=== PATIENT | female | born 1950 | race Caucasian/White ===

== ENCOUNTER 2017-03-21 15:34 | Inpatient (IN) ==
[2017-03-21] MEDS ORDERED: AZITHROMYCIN INJ 500 MG in SODIUM CHLORIDE 0.9% 250 ML IV STA (15:49)
[2017-03-21] MEDS ORDERED: methylPREDNISolone SOD SUC 125 MG/2 ML VIAL IV STA (15:49)
[2017-03-21] MEDS ORDERED: ALBUTEROL/IPRATROPIUM 3 ML NEB RESP TX STA ×2 (15:49→16:48)
--- NOTE | 2017-03-21 15:52 | EKG Report ---
Stationary ECG Study 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
--- NOTE | 2017-03-21 15:53 | Emergency Department Note ---
Arrival - Arrival Chief Complaint: Shortness of Breath Stated Complaint: Shortness of Breath ED Nursing Triage Note: Patient presents via EMS from home with a complaint of shortness of breath. Onset today. Patient states worse with walking around Mode of Arrival: Stretcher Limitations: No Limitations Source: Patient Time Seen by Provider: 03/21/17 15:49 - History of Present Illness HPI Narrative: This 66-year-old white female presents with insidious onset of dyspnea on exertion and now at rest. The patient denies cough, chills, fever, purulence, chest pain, sinus complaints, nausea, or vomiting. The patient denies any prior cardiac disease or pulmonary disease although she states she has had intermittent wheezing throughout the week and has felt tight in her chest without true pain. Currently she appears in no acute distress and is medically stable. Onset (ago): week(s) (Patient presents 1 week post onset of symptoms) Date of Last Menstrual Period: menopasue Allergies/Adverse Reactions: Allergies Allergy/AdvReac Type Severity Reaction Status Date / Time No Known Allergies Allergy Unverified 03/21/17 15:42 Review of System - Review of System 12 point system: reviewed and no additional remarkable complaints except as stated - Review of System Constitutional: Present: as per HPI Head/Ears/Nose/Throat: Present: see HPI Respiratory: Present: as per HPI Cardiovascular: Present: as per HPI Gastrointestinal: Present: as per HPI Medical,Surgical,& Family Hx - Medical History Cardio: History of: Hypertension Psychological: History of: ADHD - Social History Smoking Status: Former smoker Frequency of Alcohol Use: None Type of Drug Use: None Exam Physical Examination: GENERAL: Morbidly obese female in no acute distress. HEENT: Normocephalic. No trauma. Moist mucous membranes. EOMI. PERRLA. ENT NML NECK: Supple. No adenopathy. CARDIAC: Regular. No murmurs. Heart rate 115 CHEST: Slight anterior expiratory wheeze. No respiratory distress. O2 sat 95% ABDOMEN: Soft. Nontender. Active bowel sounds. EXTREMITIES: No trauma. Normal ROM. No pedal edema. SKIN: No diaphoresis. No rash. NEURO: Alert. Neuro intact. No focal deficits. Vital Signs: Vital Signs Temperature 98.1 F 03/21/17 15:34 Pulse Rate 112 H 03/21/17 16:30 Respiratory Rate 24 03/21/17 16:30 Blood Pressure 117/78 03/21/17 16:30 O2 Sat by Pulse Oximetry 96 03/21/17 16:30 Course - Reevaluation(s) Reevaluation #1: I have advised patient she has a number of problems necessitating admission for further evaluation including congestive failure, possible pneumonia, and positive cardiac enzymes. - Consultations Consultation #1: Discussed with hospitalist service who will admit for further evaluation treatment. Results - Labs CBC & BMP: 03/21/17 16:17 03/21/17 16:17 Labs: I have reviewed the laboratory noted the bump in troponin. - Impressions EKG: Sinus rhythm at 115 with normal DC interval but evidence of left bundle branch block. Diffuse ST changes consistent with block but no acute injury pattern noted. - Diagnostic Findings Procedure: Chest x-ray: image reviewed by me, report reviewed by me (Mild cardiomegaly with incipient CHF) Disposition Clinical Impression: Abnormal cardiac enzymes, Congestive failure, Pneumonia Case discussed with: patient, patient's family Disposition: Still a Patient Condition: Stable Time of Disposition: 17:15
[2017-03-21] MEDS ORDERED: methylPREDNISolone SOD SUC 125 MG/2 ML VIAL ONE (16:09)
--- NOTE | 2017-03-21 16:30 | XRay Report ---
XR chest 2V Date: 03/21/2017 3:49 PM History: Shortness of breath Comparison: None Technique: PA and lateral chest Findings: The heart is minimally enlarged with calcification in the aortic knob. Prominent pulmonary vasculature with diffuse parenchymal findings especially in the lower lung zones. Minimal fluid in the fissures. Degenerative changes are noted. Impression: COPD with mild to moderate CHF/pneumonitis with associated atelectasis. PROCEDURE INTERPRETED AT [facility] DEPARTMENT OF RADIOLOGY Final Report Signed by: Dr. Elizabeth Thomas
[2017-03-21 16:43] LABS: Basophils % 0.3 % (0.0-0.8); Eosinophils # 0.1 10*3/uL (0.0-0.87); Hematocrit 38.1 VOL% (35.7-47.0); Hemoglobin 12.5 GM/DL (12.0-16.0); Immature Granulocytes % 0.3 %; Immature Granulocytes Absolute 0.03 #; Lymphocytes # 1.7 10*3/uL (1.4-4.0); Lymphocytes % 15.2 % (21.3-54.2); Mean Corpuscular HGB Conc 32.8 GM/DL (32-36); Mean Corpuscular Hemoglobin 27 PG (27-34); Mean Corpuscular Volume 83.6 FL (87-102); Mean Platelet Volume 9.2 FL (9.6-12.0); Monocytes # 0.7 10*3/uL (0.11-0.8); Monocytes % 5.9 % (1.7-12.7); Neutrophils # 8.8 10*3/uL (1.4-7.4); Neutrophils % 77.3 % (38.7-73.9); Platelet Count 294 T/CUMM (130-400); Red Blood Count 4.56 MC/CUMM (3.8-5.5); Red Cell Distribution Width 14.3 % (9.3-17.3); White Blood Count 11.3 T/CUMM (4-12)
[2017-03-21] MEDS ORDERED: AZITHROMYCIN 500 MG VIAL IV ONE ×2 (16:43→16:48)
[2017-03-21] MEDS ORDERED: FUROSEMIDE 40 MG/4 ML VIAL IV STA (16:48)
[2017-03-21 16:52] LABS: PT Patient Result 10.4 SECS; Partial Thromboplastin Time 24.7 SECS (0-40)
[2017-03-21 17:03] LABS: Alanine Aminotransferase 23 U/L (13-56); Albumin 3.8 G/DL (3.4-5.0); Alkaline Phosphatase 72 U/L (45-117); Aspartate Amino Transferase 19 U/L (0-37); Blood Urea Nitrogen 22 MG/DL (7-18); Calcium 8.6 MG/DL (8.5-10.1); Glucose 93 MG/DL (74-106); Osmolality,Calculated 283.3 MOS/KG (273-304); Potassium 4.2 MMOL/L (3.5-5.1); Sodium 141 MMOL/L (136-145); Total Protein 7.2 G/DL (6.4-8.3)
[2017-03-21 17:05] LABS: Troponin I Only 0.148 NG/ML (0.00-0.045)
[2017-03-21] MEDS ORDERED: NITROGLYCERIN 2% OINT 1 INCH/GM PACK TOP STA (17:09)
[2017-03-21] MEDS ORDERED: METOPROLOL TARTRATE 25 MG TABLET PO STA (17:09)
[2017-03-21] MEDS ORDERED: ASPIRIN 325 MG TABLET PO STA (17:10)
[2017-03-21] MEDS ORDERED: ASPIRIN 325 MG TABLET ONE (17:21)
[2017-03-21] MEDS ORDERED: METOPROLOL TARTRATE 25 MG TABLET ONE (17:21)
[2017-03-21] MEDS ORDERED: NITROGLYCERIN 2% OINT 1 INCH/GM PACK TOP ONE (17:21)
--- NOTE | 2017-03-21 17:49 | Hospitalist History & Physical ---
Assessment and Plan - Time spent with patient Time spent with patient: Greater than 30 minutes (1) Elevated troponin Status: Acute Assessment and plan: Will consult cardiology and monitor for trends in cardiac enzymes. Current Visit: Yes (2) SOB (shortness of breath) Status: Acute Assessment and plan: Admit and start brocholdilator breathing treatments; diuretics; Current Visit: Yes History of Present Illness Chief complaint: SOB; Elevation in Tropinin History of present illness: Ms. Lord is a very pleasant 66 year old white female presented to [facility] ED for shortness of breath; starting this morning around 08:30 and became much worse by 1:30 p.m. with ambulation with associated feeling of "chest tightening". Denies chest pain, nausea, vomiting, chills or fever. Patient denies any prior cardiac disease or pulmonary diease, but admits to having an intermittent wheezing throughout the week and has felt some tightness in the chest without pain. Patient has a history of hypertension and reflux disease. She denies ever having these symptoms before. Surg Hx: tonsilectomy. Family History: Brother: [place]; 2nd Brother: [place]; ; Mother: alzhiemers; CAD; Father cancer; Smoking history x 50 years; Quit December 2015 No alcohol Drug use: 50 years ago patient admits to using LSD, Crack, "pretty much any street drug that i could find but have not done any drugs in 50 years" PCP: Dr. Darvin Mcguire Home Medications Medication Instructions Recorded Confirmed Type Amlodipine Besylate/Benazepril 1 each PO QAM 03/21/17 03/21/17 History [Amlodipine-Benazepril 10-20 mg] Dextroamphetamine/Amphetamine 30 mg PO QAM 03/21/17 03/21/17 History [Dextroamphetamine/Amphetamine ER] Multivitamin (Centrum) [Centrum 1 tablet PO QAM 03/21/17 03/21/17 History Tab] Omeprazole 40 mg PO QAM 03/21/17 03/21/17 History PARoxetine HCl [Paroxetine HCl] 20 mg PO QAM 03/21/17 03/21/17 History hydroCHLOROthiazide 25 mg PO QAM 03/21/17 03/21/17 History [Hydrochlorothiazide] Allergies Allergy/AdvReac Type Severity Reaction Status Date / Time No Known Allergies Allergy Unverified 03/21/17 15:42 Medical,Surgical,& Family Hx - Medical History Cardio: History of: Hypertension Psychological: History of: ADHD Gastrointestinal: History of: GERD - Surgical History HEENT Surgeries: Surgical HX of: Tonsilectomy & Adenoidectomy - Family History Family History: Reports;: Family Cancer, Family Diabetes, Family Heart Disease, Family Hypertension, Family Stroke - Social History Smoking Status: Former smoker (Quit December 2015) Frequency of Alcohol Use: None Type of Drug Use: None Functional capacity: independent ambulation Review of systems: ROS of systems completed and pertinent positives and negatives in HPI. Exam - Constitutional Vitals: Period Temp Pulse Resp BP Sys/Escobar Pulse Ox Last 24 Hr 98.1 F-98.1 F 111-116 14-33 115-135/71-98 95-100 General appearance: no acute distress, over weight - Eye Eye exam: Present: EOMI Pupils: Present: NIHARIKA - Neck Neck exam: Present: normal inspection - Respiratory Respiratory exam: Present: clear to auscultation bilaterally - GI/Abdominal GI/Abdominal exam: Present: normal bowel sounds, soft. Absent: guarding, tenderness, rebound - Extremities Exam Extremities exam: Present: normal inspection, full ROM - Neurological Exam Neurological exam: Present: alert, oriented X3, abnormal gait - Skin Skin exam: Present: normal color, warm, dry Results - Labs CBC & BMP: 03/21/17 16:17 03/21/17 16:17 Lab Results: I have reviewed the past 24 hour labs - Diagnostic Findings Procedure: X-ray: report reviewed by me (COPD with mild to moderate CHF/ pneumonia with associated atelectasis)
[2017-03-21] MEDS ORDERED: FUROSEMIDE 100 MG/10 ML VIAL ONE (17:58)
[2017-03-21] MEDS ORDERED: ONDANSETRON 4 MG/2 ML VIAL IV PRN (20:11)
[2017-03-21] MEDS ORDERED: ACETAMINOPHEN 325 MG TABLET PO PRN (20:11)
[2017-03-21] MEDS ORDERED: MAGNESIUM SULF RIDER 2 GM in PREMIX 1 EACH IV PRN (20:11)
[2017-03-21] MEDS ORDERED: ZALEPLON 5 MG CAPSULE PO PRN (20:11)
[2017-03-21] MEDS ORDERED: MAGNESIUM SULF RIDER 4 GM in PREMIX 1 EACH IV PRN (20:11)
[2017-03-21] MEDS: ENOXAPARIN 40 MG/0.4 ML SYRINGE SUBCUT SCH (22:03)
[2017-03-21] MEDS: CARVEDILOL 3.125 MG TABLET PO SCH (22:03)
[2017-03-22 06:08] LABS: Basophils % 0.1 % (0.0-0.8); Hematocrit 38.6 VOL% (35.7-47.0); Hemoglobin 12.6 GM/DL (12.0-16.0); Immature Granulocytes % 0.4 %; Immature Granulocytes Absolute 0.04 #; Lymphocytes % 10.6 % (21.3-54.2); Mean Corpuscular HGB Conc 32.6 GM/DL (32-36); Mean Corpuscular Hemoglobin 27 PG (27-34); Mean Corpuscular Volume 82.1 FL (87-102); Mean Platelet Volume 9.5 FL (9.6-12.0); Monocytes # 0.4 10*3/uL (0.11-0.8); Monocytes % 4.2 % (1.7-12.7); Neutrophils # 8.1 10*3/uL (1.4-7.4); Neutrophils % 84.7 % (38.7-73.9); Platelet Count 305 T/CUMM (130-400); Red Cell Distribution Width 14.1 % (9.3-17.3); White Blood Count 9.6 T/CUMM (4-12)
[2017-03-22 06:37] LABS: Calcium 9.4 MG/DL (8.5-10.1); Magnesium 2.2 MG/DL (1.8-2.4); Osmolality,Calculated 280.5 MOS/KG (273-304); Potassium 4.3 MMOL/L (3.5-5.1)
[2017-03-22 06:43] LABS: Troponin I Only 0.329 NG/ML (0.00-0.045)
[2017-03-22 06:48] LABS: Risk Ratio 3.9; Thyroid Stimulating Hormone 0.262 uIU/ml (0.358-3.74); VLDL CHOLESTEROL 22.8 MG/DL
--- NOTE | 2017-03-22 08:17 | EKG Report ---
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
--- NOTE | 2017-03-22 08:57 | Cardiology Consult Note ---
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 Lord is a 66 year old female without a prior cardiac history, risk factors significant for family history of early coronary artery disease, tobacco use. Her sister is present who is a nurse. She supplements the history. The patient apparently has had an 8 month subacute decline in her exercise tolerance with worsening dyspnea on exertion. She does notice some dependent lower extremity edema. She does not usually experience chest pain, palpitations. The day of admission, her dyspnea had progressed such that she was unable to walk to her kitchen because she became profoundly dyspneic, and had a sensation that an elephant was sitting on her chest. It did not radiate. She contacted her sister who brought an ambulance, and her sister palpated her heart rate to be extremely tachycardic, at least greater than 150 bpm. The patient had no awareness of these palpitation tachycardia, does not usually experience the symptoms. In the hospital symptoms have improved but she continues to have dyspnea even walking to the bathroom. She has no recent coughs colds, fevers or chills. No history of melena, bright red blood per rectum. She has no impending surgeries. She denies IV contrast allergy. She quit smoking in December of this year. Impression and plan: 1. Shortness of breath-clinically this is suspected to be heart failure, and a possible component of angina. We will workup both of these etiologies. She does have a history of smoking and possible pneumonitis as well, so these could also be contributing. 2. Congestive heart failure-clinically this is suspected with an elevated BNP and possible edema on her chest x-ray. We will check a chest x-ray and treat her medically with diuresis and afterload reduction. 3. Elevated cardiac biomarkers-once her heart failure is treated we will need to proceed with cardiac catheterization for definitive diagnosis to rule out ischemia. 4. Left bundle branch block-chronicity unknown. 5. Hyperlipidemia-we will add statin therapy. CC: Rajendra Ibrahim Jr., MD - Home Medications and Allergies Home Medications: Home Medications Medication Instructions Recorded Confirmed Type Amlodipine Besylate/Benazepril 1 each PO QAM 03/21/17 03/21/17 History [Amlodipine-Benazepril 10-20 mg] Dextroamphetamine/Amphetamine 30 mg PO QAM 03/21/17 03/21/17 History [Dextroamphetamine/Amphetamine ER] Multivitamin (Centrum) [Centrum 1 tablet PO QAM 03/21/17 03/21/17 History Tab] Omeprazole 40 mg PO QAM 03/21/17 03/21/17 History PARoxetine HCl [Paroxetine HCl] 20 mg PO QAM 03/21/17 03/21/17 History hydroCHLOROthiazide 25 mg PO QAM 03/21/17 03/21/17 History [Hydrochlorothiazide] Allergies/Adverse Reactions: Allergies Allergy/AdvReac Type Severity Reaction Status Date / Time No Known Allergies Allergy Unverified 03/21/17 15:42 12 point system: reviewed and no additional remarkable complaints except as stated Medical,Surgical,& Family Hx - Medical History Cardio: History of: Hypertension Psychological: History of: ADHD Gastrointestinal: History of: GERD - Surgical History HEENT Surgeries: Surgical HX of: Tonsilectomy & Adenoidectomy - Family History Family History: Reports;: Family Cancer (sister-cervical cancer, father- esophageal cancer), Family Diabetes (brother), Family Heart Disease (brother-MD) , Family Hypertension, Family Stroke (sister) - Social History Smoking Status: Former smoker Frequency of Alcohol Use: None Type of Drug Use: None Marital Status: Lives With:: Alone Functional capacity: independent ambulation Physical Examination Vital Signs Temp Pulse Resp BP Pulse Ox 98.1 F 116 H 28 H 117/78 95 03/21/17 15:34 03/21/17 15:34 03/21/17 15:34 03/21/17 15:34 03/21/17 15:34 Exam: General appearance: normal weight, no acute distress - Head Head exam: Present: normal inspection, normocephalic, atraumatic. Absent: hematoma, laceration - Eye Eye exam: Present: EOMI. Absent: conjunctival injection, nystagmus, periorbital swelling, scleral icterus, laceration to eyelids Pupils: Present: PERRL. Absent: constricted, dilated, fixed, irregular, unequal - ENT ENT exam: Present: normal exam, normal external ear exam - Neck Neck exam: Present: normal inspection. Absent: lymphadenopathy, meningismus, tenderness, thyromegaly - Respiratory Respiratory exam: Present: clear to auscultation bilaterally. Absent: accessory muscle use, chest wall tenderness - Cardiovascular Cardiovascular exam: Present: regular rate and rhythm. Absent: carotid bruit, gallop, JVD, rubs - GI/Abdominal GI/Abdominal exam: Present: normal bowel sounds, soft. Absent: distended, firm , guarding, hernia, mass, tenderness, rebound. - Extremities Exam Extremities exam: Present: normal inspection, normal capillary refill. Absent: calf tenderness, edema - Back Exam Back exam: Present: normal inspection. Absent: muscle spasm, vertebral tenderness - Neurological Exam Neurological exam: Present: alert, oriented X3, grossly intact without resting or intention tremor - Psychiatric Psychiatric exam: Present: normal affect, normal mood - Skin Skin exam: Present: normal color, warm, dry, intact. Absent: cyanosis, diaphoretic, rash, urticaria Result/EKG - Labs CBC & BMP: 03/22/17 04:11 03/22/17 04:11 Lab Results: I have reviewed the past 24 hour labs Labs: Laboratory Results - last 24 hr 03/21/17 03/21/17 03/21/17 16:17 16:17 16:17 WBC 11.3 RBC 4.56 Hgb 12.5 Hct 38.1 MCV 83.6 L MCH 27 MCHC 32.8 RDW 14.3 Plt Count 294 MPV 9.2 L Neut % (Auto) 77.3 H Lymph % (Auto) 15.2 L [place] % (Auto) 5.9 Eos % (Auto) 1.0 Baso % (Auto) 0.3 Neut # (Auto) 8.8 H Lymph # (Auto) 1.7 [place] # (Auto) 0.7 Eos # (Auto) 0.1 Baso # (Auto) 0.0 Immature Gran % 0.3 Nucleated RBC % 0.0 Immature Gran # 0.03 Nucleated RBCs # 0.00 INR 1.0 PT Patient/Control Mix 10.4 Circ Anticoag PTT 24.7 Sodium 141 Potassium 4.2 Chloride 106 Carbon Dioxide 28 Anion Gap 11.2 BUN 22 H Creatinine 0.90 GFR Calculation 93 BUN/Creatinine Ratio 24.00 H Glucose 93 Hemoglobin A1c Calculated Osmolality 283.3 Lactic Acid Calcium 8.6 Magnesium Total Bilirubin 0.50 AST 19 ALT 23 Alkaline Phosphatase 72 Total Creatine Kinase 92 CK-MB (CK-2) 2.7 Troponin I 0.148 H B-Natriuretic Peptide Total Protein 7.2 Albumin 3.8 Globulin 3.4 Albumin/Globulin Ratio 1.1 Triglycerides Cholesterol LDL Cholesterol VLDL Cholesterol HDL Cholesterol Heart Disease Risk Ratio Free T4 TSH 3rd Generation 03/21/17 03/21/17 03/22/17 16:17 16:17 04:11 WBC 9.6 RBC 4.70 Hgb 12.6 Hct 38.6 MCV 82.1 L MCH 27 MCHC 32.6 RDW 14.1 Plt Count 305 MPV 9.5 L Neut % (Auto) 84.7 H Lymph % (Auto) 10.6 L [place] % (Auto) 4.2 Eos % (Auto) 0.0 Baso % (Auto) 0.1 Neut # (Auto) 8.1 H Lymph # (Auto) 1.0 L [place] # (Auto) 0.4 Eos # (Auto) 0.0 Baso # (Auto) 0.0 Immature Gran % 0.4 Nucleated RBC % 0.0 Immature Gran # 0.04 Nucleated RBCs # 0.00 INR PT Patient/Control Mix Circ Anticoag PTT Sodium Potassium Chloride Carbon Dioxide Anion Gap BUN Creatinine GFR Calculation BUN/Creatinine Ratio Glucose Hemoglobin A1c Calculated Osmolality Lactic Acid 1.5 Calcium Magnesium Total Bilirubin AST ALT Alkaline Phosphatase Total Creatine Kinase CK-MB (CK-2) Troponin I B-Natriuretic Peptide 832 H Total Protein Albumin Globulin Albumin/Globulin Ratio Triglycerides Cholesterol LDL Cholesterol VLDL Cholesterol HDL Cholesterol Heart Disease Risk Ratio Free T4 TSH 3rd Generation 03/22/17 03/22/17 03/22/17 04:11 04:11 04:11 WBC RBC Hgb Hct MCV MCH MCHC RDW Plt Count MPV Neut % (Auto) Lymph % (Auto) [place] % (Auto) Eos % (Auto) Baso % (Auto) Neut # (Auto) Lymph # (Auto) [place] # (Auto) Eos # (Auto) Baso # (Auto) Immature Gran % Nucleated RBC % Immature Gran # Nucleated RBCs # INR PT Patient/Control Mix Circ Anticoag PTT Sodium 139 Potassium 4.3 Chloride 101 Carbon Dioxide 30 Anion Gap 12.3 BUN 22 H Creatinine 0.90 GFR Calculation 93 BUN/Creatinine Ratio 24.00 H Glucose 112 H Hemoglobin A1c Calculated Osmolality 280.5 Lactic Acid Calcium 9.4 Magnesium 2.2 Total Bilirubin AST ALT Alkaline Phosphatase Total Creatine Kinase 160 D CK-MB (CK-2) Troponin I 0.329 H D B-Natriuretic Peptide Total Protein Albumin Globulin Albumin/Globulin Ratio Triglycerides 114 Cholesterol 242 H LDL Cholesterol 164.0 VLDL Cholesterol 22.8 HDL Cholesterol 62 H Heart Disease Risk Ratio 3.90 Free T4 1.30 TSH 3rd Generation 0.262 L 03/22/17 04:11 WBC RBC Hgb Hct MCV MCH MCHC RDW Plt Count MPV Neut % (Auto) Lymph % (Auto) [place] % (Auto) Eos % (Auto) Baso % (Auto) Neut # (Auto) Lymph # (Auto) [place] # (Auto) Eos # (Auto) Baso # (Auto) Immature Gran % Nucleated RBC % Immature Gran # Nucleated RBCs # INR PT Patient/Control Mix Circ Anticoag PTT Sodium Potassium Chloride Carbon Dioxide Anion Gap BUN Creatinine GFR Calculation BUN/Creatinine Ratio Glucose Hemoglobin A1c 6.0 Calculated Osmolality Lactic Acid Calcium Magnesium Total Bilirubin AST ALT Alkaline Phosphatase Total Creatine Kinase CK-MB (CK-2) Troponin I B-Natriuretic Peptide Total Protein Albumin Globulin Albumin/Globulin Ratio Triglycerides Cholesterol LDL Cholesterol VLDL Cholesterol HDL Cholesterol Heart Disease Risk Ratio Free T4 TSH 3rd Generation - Diagnostic Findings Procedure: Chest x-ray: report reviewed by me - EKG EKG results: interpreted by me, sinus rhythm (LBBB)
[2017-03-22] MEDS ORDERED: AMPHETAMINE PO SCH (09:00)
[2017-03-22] MEDS ORDERED: [UNRECOGNIZED DRUG - OTHER] PO SCH (09:00)
[2017-03-22] MEDS ORDERED: DEXTROAMPHETAMINE PO SCH (09:00)
[2017-03-22] MEDS: LISINOPRIL 2.5 MG TABLET PO SCH (09:53)
[2017-03-22] MEDS: MULTIVITAMIN (CENTRUM) TABLET PO SCH (09:54)
[2017-03-22] MEDS: PARoxetine 20 MG TABLET PO SCH (09:54)
[2017-03-22] MEDS: CARVEDILOL 3.125 MG TABLET PO SCH ×2 (09:54→20:54)
[2017-03-22] MEDS: PANTOPRAZOLE 40 MG TABLET PO SCH (09:54)
[2017-03-22] MEDS: FUROSEMIDE 40 MG/4 ML VIAL IV SCH ×2 (09:55→17:00)
--- NOTE | 2017-03-22 14:06 | ECHO Report ---
Tash Lord Exam Date: 03/22/2017 10:52 Referring Physician: Technologist: Sheila Finley RDCS Age: 66 Ht (in): 70 Wt (lb): 270 Gender: F Exam Location: [facility] Echo Indications: Heart failure, unspecified, Shortness of breath, Hyperlipidemia, unspecified, Elevated troponin, Left bundle-branch block, unspecified, Essential (primary) hypertension BP: 123 / 65 HR: 91 Rhythm: Sinus Technical Quality: Fair IMPRESSIONS EF 30-35 %,moderate global hypokinesis. Grade I/IV diastolic dysfunction (abnormal relaxation filling pattern), normal to mildly elevated filling pressures. Normal right ventricular size and systolic function. The right atrium is mildly enlarged. The left atrium is mildly enlarged. Morphologically normal mitral valve. Trace mitral valve regurgitation. Aortic valve sclerosis. No aortic valve regurgitation. Moderate tricuspid valve regurgitation. PAP45 mmHg. Pulmonic valve not well visualized. No pericardial effusion. Normal aorta. MEASUREMENTS (Male / Female) Normal Values 2D ECHO LV Diastolic Diameter PLAX 6.7 cm 4.2 - 5.9 / 3.9 - 5.3 cm LV Systolic Diameter PLAX 5.5 cm LV Fractional Shortening PLAX 17.5 % IVS Diastolic Thickness 1.2 cm 0.6 - 1.0 / 0.6 - 0.9 cm LVPW Diastolic Thickness 1.2 cm 0.6 - 1.0 / 0.6 - 0.9 cm RV Internal Dim ED PLAX 3.8 cm Aortic Root Diameter 3.7 cm LA Systolic Diameter LX 5.5 cm 3.0 - 4.0 / 2.7 - 3.8 cm DOPPLER TR Peak Velocity 274.0 cm/s TR Peak Gradient 30.0 mmHg FINDINGS Left Ventricle EF 30-35 %,moderate global hypokinesis. Grade I/IV diastolic dysfunction (abnormal relaxation filling pattern), normal to mildly elevated filling pressures. Right Ventricle Normal right ventricular size and systolic function. Right Atrium The right atrium is mildly enlarged. Left Atrium The left atrium is mildly enlarged. Mitral Valve Morphologically normal mitral valve. Trace mitral valve regurgitation. Aortic Valve Aortic valve sclerosis. No aortic valve regurgitation. Tricuspid Valve Morphologically normal tricuspid valve. Moderate tricuspid valve regurgitation. PAP45 mmHg. Pulmonic Valve Pulmonic valve not well visualized. Pericardium No pericardial effusion. Aorta Normal aorta. Dariel Ca (Electronically Signed) Final Date: 22 March 2017 14:05
--- NOTE | 2017-03-22 14:31 | Hospitalist Progress Note ---
Assessment and Plan (1) Elevated troponin Status: Acute Assessment and plan: Has been evaluated by cardiology. Continue serial cardiac enzymes. Plan for cardiac cath. Current Visit: Yes (2) SOB (shortness of breath) Status: Acute Assessment and plan: This has improved. Current Visit: Yes (3) Congestive heart failure Status: Acute Current Visit: Yes Qualifiers: Congestive heart failure type: unspecified congestive heart failure type (4) LBBB (left bundle branch block) Status: Acute Assessment and plan: Appreciate input from Dr. Peralta. Current Visit: Yes Hospitalist: Subjective Interval history: The patient is resting comfortably. She states her chest discomfort has improved and her breathing is improved. No further chest pain. Serial cardiac enzymes are noted. She has been evaluated by cardiology and is planned for a cardiac cath on Friday. She gives no history of diabetes and states she has never had symptoms like this before. Exam - Constitutional Vitals: Period Temp Pulse Resp BP Sys/Escobar Pulse Ox Last 24 Hr 96.4 F-98.1 F 78-119 14-33 115-136/62-98 94-100 General appearance: over weight - Head Head exam: Present: normal inspection - Respiratory Respiratory exam: Present: clear to auscultation bilaterally - Cardiovascular Cardiovascular exam: Present: regular rate and rhythm - GI/Abdominal GI/Abdominal exam: Present: normal bowel sounds - Extremities Exam Extremities exam: Present: full ROM - Back Exam Back exam: Present: normal inspection - Neurological Exam Neurological exam: Present: alert, oriented X3, CN II-XII intact - Psychiatric Psychiatric exam: Present: normal affect, normal mood Results - Labs CBC & BMP: 03/22/17 04:11 03/22/17 04:11
[2017-03-22] MEDS: ENOXAPARIN 40 MG/0.4 ML SYRINGE SUBCUT SCH (20:53)
[2017-03-22] MEDS: ATORVASTATIN 20 MG TABLET PO SCH (20:54)
[2017-03-23 03:57] LABS: Basophils % 0.3 % (0.0-0.8); Eosinophils # 0.2 10*3/uL (0.0-0.87); Eosinophils % 1.9 % (0.00-10.9); Hematocrit 35.8 VOL% (35.7-47.0); Hemoglobin 11.9 GM/DL (12.0-16.0); Immature Granulocytes % 0.2 %; Immature Granulocytes Absolute 0.02 #; Lymphocytes # 3.4 10*3/uL (1.4-4.0); Lymphocytes % 38.1 % (21.3-54.2); Mean Corpuscular HGB Conc 33.2 GM/DL (32-36); Mean Corpuscular Hemoglobin 28 PG (27-34); Mean Corpuscular Volume 83.1 FL (87-102); Mean Platelet Volume 8.7 FL (9.6-12.0); Monocytes # 0.6 10*3/uL (0.11-0.8); Neutrophils # 4.7 10*3/uL (1.4-7.4); Neutrophils % 52.5 % (38.7-73.9); Platelet Count 232 T/CUMM (130-400); Red Blood Count 4.31 MC/CUMM (3.8-5.5); Red Cell Distribution Width 14.4 % (9.3-17.3); White Blood Count 8.9 T/CUMM (4-12)
[2017-03-23 04:33] LABS: Calcium 8.9 MG/DL (8.5-10.1); Magnesium 2.3 MG/DL (1.8-2.4); Osmolality,Calculated 283.4 MOS/KG (273-304); Potassium 3.5 MMOL/L (3.5-5.1)
[2017-03-23] MEDS ORDERED: SODIUM CHLORIDE 0.9% 1,000 ML IV SCH (09:30)
--- NOTE | 2017-03-23 09:32 | Hospitalist Progress Note ---
Assessment and Plan (1) Congestive heart failure Status: Acute Assessment and plan: Cardiac enzymes were essentially positive noted at 0.148 at admission and 0.328. Cardiology has been consulted and is following. BNP is down to 361 today; continue diuresis per cardiology . Current Visit: Yes Qualifiers: Congestive heart failure type: unspecified congestive heart failure type (2) Elevated troponin Status: Acute Current Visit: Yes (3) Hyperlipidemia Status: Acute Current Visit: Yes Hospitalist: Subjective Interval history: Patient seen and examined; chart reviewed. No significant overnight events. Noted improvement in BMP BNP noted at 361 today. Cardiology is following. Exam - Constitutional Vitals: Period Temp Pulse Resp BP Sys/Escobar Pulse Ox Last 24 Hr 97 F-97.9 F 66-95 16-20 102-161/63-88 92-96 General appearance: normal weight, no acute distress - Head Head exam: Present: normal inspection, normocephalic, atraumatic - Eye Eye exam: Present: EOMI. Absent: conjunctival injection Pupils: Present: NIHARIKA, normal accommodation - ENT ENT exam: Present: normal exam, normal external ear exam, normal oropharynx - Neck Neck exam: Present: normal inspection. Absent: lymphadenopathy, meningismus, tenderness, thyromegaly - Respiratory Respiratory exam: Present: clear to auscultation bilaterally. Absent: rales, rhonchi, stridor, wheezes - Cardiovascular Cardiovascular exam: Present: regular rate and rhythm. Absent: carotid bruit, diastolic murmur, gallop, JVD, rubs, systolic murmur - GI/Abdominal GI/Abdominal exam: Present: normal bowel sounds - Extremities Exam Extremities exam: Present: normal inspection, normal capillary refill, full ROM , edema (+2 edema noted bilateral) - Back Exam Back exam: Present: normal inspection - Neurological Exam Neurological exam: Present: alert, oriented X3, CN II-XII intact - Psychiatric Psychiatric exam: Present: normal affect, normal mood - Skin Skin exam: Present: normal color, warm, dry Results - Labs CBC & BMP: 03/23/17 03:44 03/23/17 03:44 Lab Results: I have reviewed the past 24 hour labs
--- NOTE | 2017-03-23 09:34 | CT Report ---
History: Left-sided weakness Date: 03/23/2017 Study: CT head without contrast Comparison exam: No previous head CT available for comparison Transaxial CT sections were obtained through the head without IV contrast. The patient was originally admitted on March 21, 2017. This CT exam was performed using one or more the following dose reduction techniques: Automated exposure control, adjustment of the MA and/or KV according to patient size, or use of iterative reconstruction technique. The ventricles are midline in position without evidence of hydrocephalus. There is no mass or area of parenchymal hemorrhage. There is a small area of decreased density measuring 7 mm in the left external capsule region which could represent subacute or older small area of lacunar infarction. There is no gross CT evidence of acute cortical stroke. There is no extra-axial hematoma. There is no acute abnormality of the calvarium. There is mild distal carotid artery calcification bilaterally. Impression: 7 mm area of lacunar ischemia in the left external capsule region which could be subacute or older. No parenchymal hemorrhage. No acute process otherwise PROCEDURE INTERPRETED AT [facility] DEPARTMENT OF RADIOLOGY Final Report Signed by: Dr. Marycarmen Brown
--- NOTE | 2017-03-23 09:36 | Event Note ---
Stroke: This patient who earlier this morning was doing fine was visiting with staff however on nursing rounds for medications patient was found to be dysarthric. She has a CT scan that is pending at this time. Electrolytes were noted to be normal morning labs this morning. Her blood pressure is noted be 126/80 at this time. Currently she is awake and alert recognizes me and voices Dr. Ibrahim by name. However she is dysarthric. Able to move upper and lower extremities without difficulty. Left-sided facial droop appreciated. CVA. Dysarthria. Left-sided facial droop. We will transfer to CCU. Echocardiogram. Serial cardiac enzymes. Chest x-ray. TSH, T4. UA. Carotid Dopplers. Continue with KENYA lockhart. GI prophylaxis.
[2017-03-23 10:04] LABS: Basophils % 0.3 % (0.0-0.8); Eosinophils # 0.2 10*3/uL (0.0-0.87); Eosinophils % 2.5 % (0.00-10.9); Hematocrit 39.4 VOL% (35.7-47.0); Immature Granulocytes % 0.2 %; Immature Granulocytes Absolute 0.02 #; Lymphocytes # 2.9 10*3/uL (1.4-4.0); Mean Corpuscular Hemoglobin 27 PG (27-34); Mean Corpuscular Volume 83.1 FL (87-102); Mean Platelet Volume 8.9 FL (9.6-12.0); Monocytes # 0.6 10*3/uL (0.11-0.8); Monocytes % 6.8 % (1.7-12.7); Neutrophils # 5.1 10*3/uL (1.4-7.4); Neutrophils % 57.2 % (38.7-73.9); Platelet Count 264 T/CUMM (130-400); Red Blood Count 4.74 MC/CUMM (3.8-5.5); Red Cell Distribution Width 14.3 % (9.3-17.3); White Blood Count 8.9 T/CUMM (4-12)
[2017-03-23 10:15] LABS: PT Patient Result 10.7 SECS; Partial Thromboplastin Time 24.3 SECS (0-40)
[2017-03-23] MEDS ORDERED: HEPARIN DRIP 25,000 UNITS/500 ML PREMIX IV SCH (10:15)
--- NOTE | 2017-03-23 10:22 | XRay Report ---
History: Shortness of breath. Weakness Date: 03/23/2017 Study: Chest x-ray AP portable Comparison exam: March 21, 2017 There is stable cardiomegaly. The mediastinal contour is unchanged. The pulmonary vasculature is not engorged. There is no new or worsening infiltrate. There is improved aeration in the right lower lung on the current exam. There is some minor subsegmental atelectasis or scarring in the left mid lung laterally. There is no increasing pleural effusion. Osseous structures are similar. Impression: Improved aeration in the right lung base. No interval worsening PROCEDURE INTERPRETED AT [facility] DEPARTMENT OF RADIOLOGY Final Report Signed by: Dr. Marycarmen Brown
--- NOTE | 2017-03-23 10:27 | Event Note ---
Follow-up with this patient after she is moved to the unit she is awake and alert she is able to move all of her extremities dysarthria is improving. Hemodynamically stable with blood pressure 140/80. She has pending labs at this time. Repeat CT scan of the head this afternoon at 3. Given that she has had some improvement in her symptoms will continue to do neuro checks and monitored follow-up CT scan. Lipid panel. Serial troponins. Follow chest x-ray. CBC BMP in a.m. MRI in a.m. Repeat CT scan this afternoon. Neurochecks. Holding heparin since she has not started her symptoms have started to improve. Patient is currently on Lovenox.
[2017-03-23 10:31] LABS: Calcium 9.3 MG/DL (8.5-10.1); Magnesium 2.4 MG/DL (1.8-2.4); Osmolality,Calculated 286.3 MOS/KG (273-304); Potassium 3.5 MMOL/L (3.5-5.1)
[2017-03-23 10:36] LABS: Troponin I Only 0.244 NG/ML (0.00-0.045)
[2017-03-23] MEDS: LISINOPRIL 2.5 MG TABLET PO SCH (10:40)
[2017-03-23] MEDS: PARoxetine 20 MG TABLET PO SCH (10:41)
[2017-03-23] MEDS: PANTOPRAZOLE 40 MG TABLET PO SCH (10:41)
[2017-03-23] MEDS: MULTIVITAMIN (CENTRUM) TABLET PO SCH (10:42)
[2017-03-23] MEDS: CARVEDILOL 3.125 MG TABLET PO SCH ×2 (10:43→21:12)
[2017-03-23] MEDS: FUROSEMIDE 40 MG/4 ML VIAL IV SCH ×2 (10:44→18:22)
[2017-03-23 10:46] LABS: Albumin 3.8 G/DL (3.4-5.0); Bilirubin,Total 0.5 MG/DL (0.2-1.0); Calcium 8.9 MG/DL (8.5-10.1); Osmolality,Calculated 286.3 MOS/KG (273-304); Potassium 3.5 MMOL/L (3.5-5.1); Total Protein 7.4 G/DL (6.4-8.3)
[2017-03-23 10:52] LABS: Free T4 (Free Thyroxine) 1.28 NG/DL (0.76-1.46); Risk Ratio 4.75; Thyroid Stimulating Hormone 1.42 uIU/ml (0.358-3.74); VLDL CHOLESTEROL 38.6 MG/DL
--- NOTE | 2017-03-23 11:58 | Ultrasound Report ---
History: Left-sided weakness Date: 03/23/2017 Study: Carotid duplex ultrasound Comparison exam: No previous similar Color Doppler, wave form analysis, and grayscale analysis of the cervical carotid arteries was performed. There is mild partially calcified eccentric plaque in either carotid bulb. Waveform analysis shows proper directional flow of the cervical carotid arteries. There is antegrade flow in either vertebral artery. The distal right ICA measures 5.1 mm diameter; the left measures 5.6 mm diameter. Peak systolic velocities are as follows: Right CCA 64 cm/s Right ICA 49 cm/s Right ECA 69 cm/s Right vertebral 49 cm/s Right IC/CC ratio 0.8 Left CCA 64 cm/s Left ICA 62 cm/s Left ECA 51 cm/s Left vertebral 44 cm/s Left IC/CC ratio 1.0 There is 0-15% diameter reduction narrowing of either internal carotid artery using indirect NASCET criteria. Ultrasound images were captured and archived. Impression: No hemodynamically significant internal carotid artery stenosis PROCEDURE INTERPRETED AT [facility] DEPARTMENT OF RADIOLOGY Final Report Signed by: Dr. Marycarmen Brown
[2017-03-23 12:05] LABS: Apearance,Urine CLEAR (Clear); Bilirubin,Urine Negative (Negative); Blood, Urine Negative (Negative); Glucose,Urine (UA) Negative (Negative); Ketones,Urine Negative (Negative); Nitrite,Urine Negative (Negative); Protein,Urine Negative; RBC,Urine <1 /HPF (0-4); Squamous Epithelial Cell,Urine Occasional /HPF (0-10); Urine Color Straw (Yellow); Urine Specific Gravity 1.004 (1.001-1.035); Urine Urobilinogen < 2.0 EU/DL (0.2-1.0); WBC,Urine 4 /HPF (0-6)
--- NOTE | 2017-03-23 12:26 | Cardiology Progress Note ---
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 Lord is a 66 year old female without a prior cardiac history, risk factors significant for family history of early coronary artery disease, tobacco use. She was admitted with congestive heart failure that appeared to be subacute decline over a number of months. She also positive cardiac biomarkers and possible tachyarrhythmia. March 23, 2017: From a cardiac standpoint she was initially doing well, much improved symptoms. She can lie flat to sleep, had much less dyspnea. However, she also experienced acute onset of left-sided weakness and facial droop, with dysarthria consistent with acute stroke. At this point she has regained muscular function on her left side with the exception of a persistent left- sided facial droop and dysarthria. Ejection fraction is 30%. Impression and plan: 1. Acute stroke-she will be started on a heparin drip. Carotid Dopplers are pending. She will get repeat CT and MRI. She is on aspirin. 2. Congestive heart failure-she has responded to treatment. She has a newly diagnosed cardiomyopathy. 3. Elevated cardiac biomarkers-once her heart failure is treated we will need to proceed with cardiac catheterization for definitive diagnosis to rule out ischemia. At this point this will be delayed due to her acute stroke. 4. Left bundle branch block-chronicity unknown. 5. Hyperlipidemia-we will add statin therapy. Exam (Progress Note) - Constitutional Vitals: Period Temp Pulse Resp BP Sys/Escobar Pulse Ox Last 24 Hr 97.2 F-97.9 F 66-104 16-20 102-161/63-93 92-98 Exam: General appearance: normal weight, no acute distress - Head Head exam: Present: normal inspection, normocephalic, atraumatic. Absent: hematoma, laceration - Eye Eye exam: Present: EOMI. Absent: conjunctival injection, nystagmus, periorbital swelling, scleral icterus, laceration to eyelids Pupils: Absent: constricted, dilated, fixed, irregular, unequal - ENT ENT exam: Present: normal exam, normal external ear exam - Neck Neck exam: Present: normal inspection. Absent: lymphadenopathy, meningismus, tenderness, thyromegaly - Respiratory Respiratory exam: Present: clear to auscultation bilaterally. Absent: accessory muscle use, chest wall tenderness - Cardiovascular Cardiovascular exam: Present: regular rate and rhythm. Absent: carotid bruit, gallop, JVD, rubs - GI/Abdominal GI/Abdominal exam: Present: normal bowel sounds, soft. Absent: distended, firm , guarding, hernia, mass, tenderness, rebound. - Extremities Exam Extremities exam: Present: normal capillary refill. Absent: calf tenderness, edema - Back Exam Back exam: Present: normal inspection. Absent: muscle spasm, vertebral tenderness - Neurological Exam Neurological exam: Present: alert, oriented X3, there is left-sided facial drooping and dysarthria. She has matched strength in the bilateral extremities. - Psychiatric Psychiatric exam: Present: normal affect, normal mood - Skin Skin exam: Present: normal color, warm, dry, intact. Absent: cyanosis, diaphoretic, rash, urticaria Result/EKG - Labs CBC & BMP: 03/23/17 09:55 03/23/17 09:55 Lab Results: I have reviewed the past 24 hour labs Labs: Laboratory Results - last 24 hr 03/23/17 03/23/17 03/23/17 03:44 03:44 03:44 WBC 8.9 RBC 4.31 Hgb 11.9 L Hct 35.8 MCV 83.1 L MCH 28 MCHC 33.2 RDW 14.4 Plt Count 232 D MPV 8.7 L Neut % (Auto) 52.5 Lymph % (Auto) 38.1 [place] % (Auto) 7.0 Eos % (Auto) 1.9 Baso % (Auto) 0.3 Neut # (Auto) 4.7 Lymph # (Auto) 3.4 [place] # (Auto) 0.6 Eos # (Auto) 0.2 Baso # (Auto) 0.0 Immature Gran % 0.2 Nucleated RBC % 0.0 Immature Gran # 0.02 Nucleated RBCs # 0.00 INR PT Patient/Control Mix Circ Anticoag PTT Sodium 140 Potassium 3.5 Chloride 103 Carbon Dioxide 29 Anion Gap 11.5 BUN 26 H Creatinine 0.80 GFR Calculation 108 BUN/Creatinine Ratio 32.00 H Glucose 103 Calculated Osmolality 283.4 Calcium 8.9 Magnesium 2.3 Total Bilirubin AST ALT Alkaline Phosphatase Total Creatine Kinase CK-MB (CK-2) Troponin I C-Reactive Protein Cardiac CRP High Sens B-Natriuretic Peptide 361 H Total Protein Albumin Globulin Albumin/Globulin Ratio Triglycerides Cholesterol LDL Cholesterol VLDL Cholesterol HDL Cholesterol Heart Disease Risk Ratio Free T4 TSH 3rd Generation Urine Color Urine Appearance Urine pH Ur Specific [place] Urine Protein Urine Glucose (UA) Urine Ketones Urine Blood Urine Nitrate Urine Bilirubin Urine Urobilinogen Urine Leukocytes Urine RBC Urine WBC Ur Squamous Epith Cells Ur Culture Indicated? 03/23/17 03/23/17 03/23/17 09:55 09:55 09:55 WBC 8.9 RBC 4.74 Hgb 13.0 Hct 39.4 MCV 83.1 L MCH 27 MCHC 33.0 RDW 14.3 Plt Count 264 MPV 8.9 L Neut % (Auto) 57.2 Lymph % (Auto) 33.0 [place] % (Auto) 6.8 Eos % (Auto) 2.5 Baso % (Auto) 0.3 Neut # (Auto) 5.1 Lymph # (Auto) 2.9 [place] # (Auto) 0.6 Eos # (Auto) 0.2 Baso # (Auto) 0.0 Immature Gran % 0.2 Nucleated RBC % 0.0 Immature Gran # 0.02 Nucleated RBCs # 0.00 INR 1.0 PT Patient/Control Mix 10.7 Circ Anticoag PTT 24.3 Sodium 141 Potassium 3.5 Chloride 102 Carbon Dioxide 29 Anion Gap 13.5 BUN 27 H Creatinine 1.00 GFR Calculation 83 BUN/Creatinine Ratio 27.00 H Glucose 116 H Calculated Osmolality 286.3 Calcium 8.9 Magnesium Total Bilirubin 0.50 AST 22 ALT 25 Alkaline Phosphatase 70 Total Creatine Kinase CK-MB (CK-2) Troponin I C-Reactive Protein Cardiac CRP High Sens B-Natriuretic Peptide Total Protein 7.4 Albumin 3.8 Globulin 3.6 H Albumin/Globulin Ratio 1.0 L Triglycerides Cholesterol LDL Cholesterol VLDL Cholesterol HDL Cholesterol Heart Disease Risk Ratio Free T4 TSH 3rd Generation Urine Color Urine Appearance Urine pH Ur Specific [place] Urine Protein Urine Glucose (UA) Urine Ketones Urine Blood Urine Nitrate Urine Bilirubin Urine Urobilinogen Urine Leukocytes Urine RBC Urine WBC Ur Squamous Epith Cells Ur Culture Indicated? 03/23/17 03/23/17 03/23/17 09:55 09:55 09:55 WBC RBC Hgb Hct MCV MCH MCHC RDW Plt Count MPV Neut % (Auto) Lymph % (Auto) [place] % (Auto) Eos % (Auto) Baso % (Auto) Neut # (Auto) Lymph # (Auto) [place] # (Auto) Eos # (Auto) Baso # (Auto) Immature Gran % Nucleated RBC % Immature Gran # Nucleated RBCs # INR PT Patient/Control Mix Circ Anticoag PTT Sodium 141 Potassium 3.5 Chloride 103 Carbon Dioxide 30 Anion Gap 11.5 BUN 27 H Creatinine 1.00 GFR Calculation 83 BUN/Creatinine Ratio 27.00 H Glucose 125 H Calculated Osmolality 286.3 Calcium 9.3 Magnesium 2.4 Total Bilirubin AST ALT Alkaline Phosphatase Total Creatine Kinase 241 H D CK-MB (CK-2) 4.5 H Troponin I 0.244 H D C-Reactive Protein 0.85 H Cardiac CRP High Sens B-Natriuretic Peptide Total Protein Albumin Globulin Albumin/Globulin Ratio Triglycerides Cholesterol LDL Cholesterol VLDL Cholesterol HDL Cholesterol Heart Disease Risk Ratio Free T4 1.28 TSH 3rd Generation 1.420 Urine Color Urine Appearance Urine pH Ur Specific [place] Urine Protein Urine Glucose (UA) Urine Ketones Urine Blood Urine Nitrate Urine Bilirubin Urine Urobilinogen Urine Leukocytes Urine RBC Urine WBC Ur Squamous Epith Cells Ur Culture Indicated? 03/23/17 03/23/17 03/23/17 09:55 09:55 11:30 WBC RBC Hgb Hct MCV MCH MCHC RDW Plt Count MPV Neut % (Auto) Lymph % (Auto) [place] % (Auto) Eos % (Auto) Baso % (Auto) Neut # (Auto) Lymph # (Auto) [place] # (Auto) Eos # (Auto) Baso # (Auto) Immature Gran % Nucleated RBC % Immature Gran # Nucleated RBCs # INR PT Patient/Control Mix Circ Anticoag PTT Sodium Potassium Chloride Carbon Dioxide Anion Gap BUN Creatinine GFR Calculation BUN/Creatinine Ratio Glucose Calculated Osmolality Calcium Magnesium Total Bilirubin AST ALT Alkaline Phosphatase Total Creatine Kinase CK-MB (CK-2) Troponin I C-Reactive Protein Cardiac CRP High Sens 0.800 H B-Natriuretic Peptide Total Protein Albumin Globulin Albumin/Globulin Ratio Triglycerides 193 H Cholesterol 242 H LDL Cholesterol 153.0 VLDL Cholesterol 38.6 HDL Cholesterol 51 Heart Disease Risk Ratio 4.75 Free T4 TSH 3rd Generation Urine Color Straw Urine Appearance Clear Urine pH 6.0 Ur Specific [place] 1.004 Urine Protein Negative Urine Glucose (UA) Negative Urine Ketones Negative Urine Blood Negative Urine Nitrate Negative Urine Bilirubin Negative Urine Urobilinogen < 2.0 H Urine Leukocytes Small H Urine RBC <1 Urine WBC 4 Ur Squamous Epith Cells Occasional Ur Culture Indicated? Results to follow
[2017-03-23] MEDS: ASPIRIN EC 325 MG TABLET PO SCH (12:36)
[2017-03-23] MEDS: HEPARIN DRIP 25,000 UNITS/500 ML PREMIX IV SCH (12:48)
[2017-03-23] MEDS: DEXTROSE 5% NACL 0.45% 1,000 ML IV SCH (18:44)
[2017-03-23 19:33] LABS: Troponin I Only 0.177 NG/ML (0.00-0.045)
[2017-03-23] MEDS ORDERED: HEPARIN 5,000 UNIT/1 ML VIAL IV ONE (20:27)
--- NOTE | 2017-03-23 20:38 | CT Report ---
History: CVA Date: 03/23/2017 Study: CT head without contrast at 8:10 PM Comparison exam: 03/23/2017 at 9:[address] sections were obtained through the head without IV contrast. The patient was originally admitted on March 21, 2017. This CT exam was performed using one or more the following dose reduction techniques: Automated exposure control, adjustment of the MA and/or KV according to patient size, or use of iterative reconstruction technique. There is a small bandlike area of decreased density measuring 18 x 4 mm involving right frontoparietal cortex and subcortical white matter suggesting an area of recent ischemia. There is no parenchymal hemorrhage. There is no area of mass effect or significant abnormality otherwise. There is no extra-axial hematoma. The bony calvarium is unchanged. Impression: Small bandlike area of decreased density compatible with recent ischemia involving the right frontoparietal region in right MCA territory. No parenchymal hemorrhage PROCEDURE INTERPRETED AT [facility] DEPARTMENT OF RADIOLOGY Final Report Signed by: Dr. Marycarmen Brown
[2017-03-23] MEDS: ATORVASTATIN 20 MG TABLET PO SCH (21:12)
[2017-03-24 04:43] LABS: Basophils # 0.1 10*3/uL (0.0-0.2); Basophils % 0.6 % (0.0-0.8); Eosinophils # 0.2 10*3/uL (0.0-0.87); Eosinophils % 2.7 % (0.00-10.9); Hematocrit 39.5 VOL% (35.7-47.0); Hemoglobin 13.3 GM/DL (12.0-16.0); Immature Granulocytes % 0.2 %; Immature Granulocytes Absolute 0.02 #; Lymphocytes # 3.4 10*3/uL (1.4-4.0); Lymphocytes % 40.9 % (21.3-54.2); Mean Corpuscular HGB Conc 33.7 GM/DL (32-36); Mean Corpuscular Hemoglobin 28 PG (27-34); Mean Corpuscular Volume 82.6 FL (87-102); Mean Platelet Volume 8.8 FL (9.6-12.0); Monocytes # 0.7 10*3/uL (0.11-0.8); Monocytes % 7.9 % (1.7-12.7); Neutrophils % 47.7 % (38.7-73.9); Platelet Count 244 T/CUMM (130-400); Red Blood Count 4.78 MC/CUMM (3.8-5.5); Red Cell Distribution Width 14.3 % (9.3-17.3); White Blood Count 8.3 T/CUMM (4-12)
[2017-03-24] MEDS: HEPARIN DRIP 25,000 UNITS/500 ML PREMIX IV SCH ×3 (05:32→21:04)
[2017-03-24 06:43] LABS: Calcium 8.8 MG/DL (8.5-10.1); Phosphorous 4.5 MG/DL (2.5-4.9)
[2017-03-24 06:44] LABS: Albumin 3.6 G/DL (3.4-5.0); Bilirubin,Total 0.8 MG/DL (0.2-1.0); Total Protein 7.2 G/DL (6.4-8.3)
[2017-03-24 06:45] LABS: Osmolality,Calculated 283.4 MOS/KG (273-304); Potassium 3.3 MMOL/L (3.5-5.1)
[2017-03-24 07:01] LABS: Magnesium 2.3 MG/DL (1.8-2.4)
[2017-03-24] MEDS ORDERED: HEPARIN 5,000 UNIT/1 ML VIAL ONE (07:52)
[2017-03-24] MEDS: DEXTROSE 5% NACL 0.45% 1,000 ML IV SCH ×2 (07:56→20:14)
--- NOTE | 2017-03-24 09:23 | Hospitalist Progress Note ---
Assessment and Plan (1) Elevated troponin Status: Acute Assessment and plan: Has been evaluated by cardiology. Plan for cardiac cath. Current Visit: Yes (2) SOB (shortness of breath) Status: Acute Assessment and plan: This has improved. Current Visit: Yes (3) Congestive heart failure Status: Resolved Current Visit: Yes Qualifiers: Congestive heart failure type: unspecified congestive heart failure type (4) LBBB (left bundle branch block) Status: Acute Assessment and plan: Appreciate input from Dr. Peralta. Current Visit: Yes (5) CVA (cerebral vascular accident) Status: Acute Assessment and plan: PT OT speech path. Continue with heparin infusion. Current Visit: Yes Qualifiers: CVA mechanism: other Qualified Code(s): I63.8 - Other cerebral infarction Hospitalist: Subjective Interval history: The patient is resting states she got some rest last night. Dysarthria is improving. CT head done last night shows evidence of the recent stroke but no hemorrhage appreciated. She is scheduled for an MRI. Hemodynamics have been stable. No fevers or chills. Exam - Constitutional Vitals: Period Temp Pulse Resp BP Sys/Escobar Pulse Ox Last 24 Hr 96.3 F-97.4 F 61-104 9-92 88-144/55-107 84-99 General appearance: over weight - Head Head exam: Present: normal inspection, other (Left facial droop) - Respiratory Respiratory exam: Present: clear to auscultation bilaterally - Cardiovascular Cardiovascular exam: Present: regular rate and rhythm - GI/Abdominal GI/Abdominal exam: Present: normal bowel sounds - Extremities Exam Extremities exam: Present: normal inspection, full ROM - Back Exam Back exam: Present: normal inspection - Neurological Exam Neurological exam: Present: alert, oriented X3 - Psychiatric Psychiatric exam: Present: normal affect, normal mood - Skin Skin exam: Present: normal color, dry Results - Labs CBC & BMP: 03/24/17 04:34 03/24/17 04:34
[2017-03-24] MEDS: CARVEDILOL 3.125 MG TABLET PO SCH ×2 (09:24→20:12)
[2017-03-24] MEDS: PANTOPRAZOLE 40 MG TABLET PO SCH (09:24)
[2017-03-24] MEDS: FUROSEMIDE 40 MG/4 ML VIAL IV SCH ×2 (09:24→16:40)
[2017-03-24] MEDS: MULTIVITAMIN (CENTRUM) TABLET PO SCH (09:24)
[2017-03-24] MEDS: ASPIRIN EC 325 MG TABLET PO SCH (09:24)
[2017-03-24] MEDS: LISINOPRIL 2.5 MG TABLET PO SCH (09:24)
[2017-03-24] MEDS: PARoxetine 20 MG TABLET PO SCH (09:24)
--- NOTE | 2017-03-24 09:43 | Cardiology Progress Note ---
Assessment and Plan - Time spent with patient Time spent with patient: Less than 30 minutes (1) Cardiomyopathy Status: Acute Assessment and plan: See plan of care listed below. Current Visit: Yes (2) Stroke Status: Acute Assessment and plan: See plan of care listed below. Current Visit: Yes (3) Congestive heart failure Status: Resolved Assessment and plan: See plan of care listed below. Current Visit: Yes Qualifiers: Congestive heart failure type: unspecified congestive heart failure type (4) Hyperlipidemia Status: Acute Assessment and plan: See plan of care listed below. Current Visit: Yes (5) Elevated troponin Status: Acute Assessment and plan: See plan of care listed below. Current Visit: Yes (6) SOB (shortness of breath) Status: Acute Assessment and plan: See plan of care listed below. Current Visit: Yes (7) LBBB (left bundle branch block) Status: Acute Assessment and plan: See plan of care listed below. Current Visit: Yes Cardiology - PN: Subj Interval history: Parachute Line Tier: None, new to Dr. Peralta Summary: Ms. Lord is a 66 year old female without a prior cardiac history, risk factors significant for family history of early coronary artery disease, tobacco use. She was admitted with congestive heart failure that appeared to be subacute decline over a number of months. She also positive cardiac biomarkers and possible tachyarrhythmia. She experienced acute onset of left- sided weakness and facial droop with dysarthria consistent with acute stroke. Head CT revealed a 7mm lacunar infarct in the left internal capsule. She was started on heparin drip per protocol. MARCH 24, 2017: Ms. Lord is doing well from a cardiac standpoing. She has now regained muscular function on her left side with the exception of a persistent left-sided facial droop and dysarthria. She is able to swallow medications without difficulty and is tolerating po liquids. Speech therapy has been consulted to see her. Vital signs are currently stable and she denies chest pain or shortness of breath. Impression and plan: 1. Acute stroke-she is on a heparin drip. Carotid Dopplers showed no significant ICA stenosis bilaterally. She is on aspirin. 2. Congestive heart failure-she has responded to treatment. She has a newly diagnosed cardiomyopathy. 3. Elevated cardiac biomarkers-once her heart failure is treated we will need to proceed with cardiac catheterization for definitive diagnosis to rule out ischemia. At this point this will be delayed due to her acute stroke. She is on an misael inhibitor, beta emmanuel, aspirin, and high dose statin. 4. Left bundle branch block-chronicity unknown. 5. Hyperlipidemia-She has been started on high dose statin therapy. Exam (Progress Note) - Constitutional Vitals: Period Temp Pulse Resp BP Sys/Escobar Pulse Ox Last 24 Hr 96.3 F-97.4 F 61-104 9-92 88-144/55-107 84-99 Exam: General appearance: normal weight, no acute distress - Head Head exam: Present: normal inspection, normocephalic, atraumatic. Absent: hematoma, laceration - Eye Eye exam: Present: EOMI. Absent: conjunctival injection, nystagmus, periorbital swelling, scleral icterus, laceration to eyelids Pupils: Absent: constricted, dilated, fixed, irregular, unequal - ENT ENT exam: Present: normal exam, normal external ear exam - Neck Neck exam: Present: normal inspection. Absent: lymphadenopathy, meningismus, tenderness, thyromegaly - Respiratory Respiratory exam: Present: clear to auscultation bilaterally. Absent: accessory muscle use, chest wall tenderness - Cardiovascular Cardiovascular exam: Present: regular rate and rhythm. Absent: carotid bruit, gallop, JVD, rubs - GI/Abdominal GI/Abdominal exam: Present: normal bowel sounds, soft. Absent: distended, firm , guarding, hernia, mass, tenderness, rebound. - Extremities Exam Extremities exam: Present: normal capillary refill. Absent: calf tenderness, edema - Back Exam Back exam: Present: normal inspection. Absent: muscle spasm, vertebral tenderness - Neurological Exam Neurological exam: Present: alert, oriented X3, there is left-sided facial drooping and dysarthria. She has matched strength in the bilateral extremities. - Psychiatric Psychiatric exam: Present: normal affect, normal mood - Skin Skin exam: Present: normal color, warm, dry, intact. Absent: cyanosis, diaphoretic, rash, urticaria Result/EKG - Labs CBC & BMP: 03/24/17 04:34 03/24/17 04:34 Lab Results: I have reviewed the past 24 hour labs Labs: Laboratory Results - last 24 hr 03/23/17 03/23/17 03/23/17 09:55 09:55 09:55 WBC 8.9 RBC 4.74 Hgb 13.0 Hct 39.4 MCV 83.1 L MCH 27 MCHC 33.0 RDW 14.3 Plt Count 264 MPV 8.9 L Neut % (Auto) 57.2 Lymph % (Auto) 33.0 Payne % (Auto) 6.8 Eos % (Auto) 2.5 Baso % (Auto) 0.3 Neut # (Auto) 5.1 Lymph # (Auto) 2.9 Payne # (Auto) 0.6 Eos # (Auto) 0.2 Baso # (Auto) 0.0 Immature Gran % 0.2 Nucleated RBC % 0.0 Immature Gran # 0.02 Nucleated RBCs # 0.00 INR 1.0 PT Patient/Control Mix 10.7 Circ Anticoag PTT 24.3 Sodium 141 Potassium 3.5 Chloride 102 Carbon Dioxide 29 Anion Gap 13.5 BUN 27 H Creatinine 1.00 GFR Calculation 83 BUN/Creatinine Ratio 27.00 H Glucose 116 H POC Glucose Calculated Osmolality 286.3 Calcium 8.9 Phosphorus Magnesium Total Bilirubin 0.50 AST 22 ALT 25 Alkaline Phosphatase 70 Total Creatine Kinase CK-MB (CK-2) Troponin I C-Reactive Protein Cardiac CRP High Sens Total Protein 7.4 Albumin 3.8 Globulin 3.6 H Albumin/Globulin Ratio 1.0 L Triglycerides Cholesterol LDL Cholesterol VLDL Cholesterol HDL Cholesterol Heart Disease Risk Ratio Free T4 TSH 3rd Generation Urine Color Urine Appearance Urine pH Ur Specific [place] Urine Protein Urine Glucose (UA) Urine Ketones Urine Blood Urine Nitrate Urine Bilirubin Urine Urobilinogen Urine Leukocytes Urine RBC Urine WBC Ur Squamous Epith Cells Ur Culture Indicated? 03/23/17 03/23/17 03/23/17 09:55 09:55 09:55 WBC RBC Hgb Hct MCV MCH MCHC RDW Plt Count MPV Neut % (Auto) Lymph % (Auto) Payne % (Auto) Eos % (Auto) Baso % (Auto) Neut # (Auto) Lymph # (Auto) Payne # (Auto) Eos # (Auto) Baso # (Auto) Immature Gran % Nucleated RBC % Immature Gran # Nucleated RBCs # INR PT Patient/Control Mix Circ Anticoag PTT Sodium 141 Potassium 3.5 Chloride 103 Carbon Dioxide 30 Anion Gap 11.5 BUN 27 H Creatinine 1.00 GFR Calculation 83 BUN/Creatinine Ratio 27.00 H Glucose 125 H POC Glucose Calculated Osmolality 286.3 Calcium 9.3 Phosphorus Magnesium 2.4 Total Bilirubin AST ALT Alkaline Phosphatase Total Creatine Kinase 241 H D CK-MB (CK-2) 4.5 H Troponin I 0.244 H D C-Reactive Protein 0.85 H Cardiac CRP High Sens Total Protein Albumin Globulin Albumin/Globulin Ratio Triglycerides Cholesterol LDL Cholesterol VLDL Cholesterol HDL Cholesterol Heart Disease Risk Ratio Free T4 1.28 TSH 3rd Generation 1.420 Urine Color Urine Appearance Urine pH Ur Specific [place] Urine Protein Urine Glucose (UA) Urine Ketones Urine Blood Urine Nitrate Urine Bilirubin Urine Urobilinogen Urine Leukocytes Urine RBC Urine WBC Ur Squamous Epith Cells Ur Culture Indicated? 03/23/17 03/23/17 03/23/17 09:55 09:55 10:00 WBC RBC Hgb Hct MCV MCH MCHC RDW Plt Count MPV Neut % (Auto) Lymph % (Auto) Payne % (Auto) Eos % (Auto) Baso % (Auto) Neut # (Auto) Lymph # (Auto) Payne # (Auto) Eos # (Auto) Baso # (Auto) Immature Gran % Nucleated RBC % Immature Gran # Nucleated RBCs # INR PT Patient/Control Mix Circ Anticoag PTT Sodium Potassium Chloride Carbon Dioxide Anion Gap BUN Creatinine GFR Calculation BUN/Creatinine Ratio Glucose POC Glucose 159 H Calculated Osmolality Calcium Phosphorus Magnesium Total Bilirubin AST ALT Alkaline Phosphatase Total Creatine Kinase CK-MB (CK-2) Troponin I C-Reactive Protein Cardiac CRP High Sens 0.800 H Total Protein Albumin Globulin Albumin/Globulin Ratio Triglycerides 193 H Cholesterol 242 H LDL Cholesterol 153.0 VLDL Cholesterol 38.6 HDL Cholesterol 51 Heart Disease Risk Ratio 4.75 Free T4 TSH 3rd Generation Urine Color Urine Appearance Urine pH Ur Specific [place] Urine Protein Urine Glucose (UA) Urine Ketones Urine Blood Urine Nitrate Urine Bilirubin Urine Urobilinogen Urine Leukocytes Urine RBC Urine WBC Ur Squamous Epith Cells Ur Culture Indicated? 03/23/17 03/23/17 03/23/17 11:30 18:46 18:46 WBC RBC Hgb Hct MCV MCH MCHC RDW Plt Count MPV Neut % (Auto) Lymph % (Auto) Payne % (Auto) Eos % (Auto) Baso % (Auto) Neut # (Auto) Lymph # (Auto) Payne # (Auto) Eos # (Auto) Baso # (Auto) Immature Gran % Nucleated RBC % Immature Gran # Nucleated RBCs # INR PT Patient/Control Mix Circ Anticoag PTT 32.0 D Sodium Potassium Chloride Carbon Dioxide Anion Gap BUN Creatinine GFR Calculation BUN/Creatinine Ratio Glucose POC Glucose Calculated Osmolality Calcium Phosphorus Magnesium Total Bilirubin AST ALT Alkaline Phosphatase Total Creatine Kinase 197 H CK-MB (CK-2) 3.3 Troponin I 0.177 H D C-Reactive Protein Cardiac CRP High Sens Total Protein Albumin Globulin Albumin/Globulin Ratio Triglycerides Cholesterol LDL Cholesterol VLDL Cholesterol HDL Cholesterol Heart Disease Risk Ratio Free T4 TSH 3rd Generation Urine Color Straw Urine Appearance Clear Urine pH 6.0 Ur Specific [place] 1.004 Urine Protein Negative Urine Glucose (UA) Negative Urine Ketones Negative Urine Blood Negative Urine Nitrate Negative Urine Bilirubin Negative Urine Urobilinogen < 2.0 H Urine Leukocytes Small H Urine RBC <1 Urine WBC 4 Ur Squamous Epith Cells Occasional Ur Culture Indicated? Results to follow 03/24/17 03/24/17 03/24/17 01:13 04:34 04:34 WBC 8.3 RBC 4.78 Hgb 13.3 Hct 39.5 MCV 82.6 L MCH 28 MCHC 33.7 RDW 14.3 Plt Count 244 MPV 8.8 L Neut % (Auto) 47.7 Lymph % (Auto) 40.9 Payne % (Auto) 7.9 Eos % (Auto) 2.7 Baso % (Auto) 0.6 Neut # (Auto) 4.0 Lymph # (Auto) 3.4 Payne # (Auto) 0.7 Eos # (Auto) 0.2 Baso # (Auto) 0.1 Immature Gran % 0.2 Nucleated RBC % 0.0 Immature Gran # 0.02 Nucleated RBCs # 0.00 INR PT Patient/Control Mix Circ Anticoag PTT 42.5 H D Sodium 140 Potassium 3.3 L Chloride 100 Carbon Dioxide 31 Anion Gap 12.3 BUN 24 H Creatinine 0.75 GFR Calculation 116 BUN/Creatinine Ratio 32.00 H Glucose 110 H POC Glucose Calculated Osmolality 283.4 Calcium 8.8 Phosphorus 4.5 Magnesium 2.3 Total Bilirubin 0.80 AST 16 ALT 23 Alkaline Phosphatase 62 Total Creatine Kinase CK-MB (CK-2) Troponin I C-Reactive Protein Cardiac CRP High Sens Total Protein 7.2 Albumin 3.6 Globulin 3.6 H Albumin/Globulin Ratio 1.0 L Triglycerides Cholesterol LDL Cholesterol VLDL Cholesterol HDL Cholesterol Heart Disease Risk Ratio Free T4 TSH 3rd Generation Urine Color Urine Appearance Urine pH Ur Specific [place] Urine Protein Urine Glucose (UA) Urine Ketones Urine Blood Urine Nitrate Urine Bilirubin Urine Urobilinogen Urine Leukocytes Urine RBC Urine WBC Ur Squamous Epith Cells Ur Culture Indicated? 07/03/17 07:08 WBC RBC Hgb Hct MCV MCH MCHC RDW Plt Count MPV Neut % (Auto) Lymph % (Auto) Payne % (Auto) Eos % (Auto) Baso % (Auto) Neut # (Auto) Lymph # (Auto) Payne # (Auto) Eos # (Auto) Baso # (Auto) Immature Gran % Nucleated RBC % Immature Gran # Nucleated RBCs # INR PT Patient/Control Mix Circ Anticoag PTT 38.4 Sodium Potassium Chloride Carbon Dioxide Anion Gap BUN Creatinine GFR Calculation BUN/Creatinine Ratio Glucose POC Glucose Calculated Osmolality Calcium Phosphorus Magnesium Total Bilirubin AST ALT Alkaline Phosphatase Total Creatine Kinase CK-MB (CK-2) Troponin I C-Reactive Protein Cardiac CRP High Sens Total Protein Albumin Globulin Albumin/Globulin Ratio Triglycerides Cholesterol LDL Cholesterol VLDL Cholesterol HDL Cholesterol Heart Disease Risk Ratio Free T4 TSH 3rd Generation Urine Color Urine Appearance Urine pH Ur Specific [place] Urine Protein Urine Glucose (UA) Urine Ketones Urine Blood Urine Nitrate Urine Bilirubin Urine Urobilinogen Urine Leukocytes Urine RBC Urine WBC Ur Squamous Epith Cells Ur Culture Indicated? - EKG EKG results: interpreted by me, sinus rhythm (with left bundle branch block, chronicity unknown. )
[2017-03-24] MEDS: POTASSIUM CHLORIDE 20 MEQ TABLET PO PRN ×4 (09:56→21:01)
--- NOTE | 2017-03-24 11:45 | Physician Query Form ---
CLICK EDIT DOCUMENT TO SELECT QUERY ANSWER --> OK --> SIGN Vinita Gomez RN Clinical Passenger [employer] Apprentice W) [phone] (f) [phone] [email or web address] PROVIDERS: Make your selection(s) from the choices in EACH section by typing an "x" and enter comments in the comment section. Please use your independent medical judgment in providing your response. This request does not imply that any particular answer is desired or expected. CLINICAL INDICATORS: (Providers should not edit this section) Based on documentation of "CHF" in 03/24/17 Progress note, [id number], Echo showed EF of 30-35% with Grade I/IV diastolic dysfunction. CXR report states "mild to moderate CHF". Pt. treated with IV Lasix. Please provide further specificity regarding CHF. ACUITY: (X) Acute ( ) Chronic ( ) Acute on Chronic ( ) Clinicallly unable to determine TYPE: (X) Systolic (HFrEF - heart failure with reduced systolic function/EF) ( ) Diastolic (HFpEF - heart failure with preserved systolic function/EF) ( ) Combined Systolic/Diastolic ( ) Other, please specify: ( ) Clinically unable to determine ( ) The patient does NOT have CHF COMMENTS: Patient has a newly diagnosed cardiomyopathy, unsure whether ischemic or nonischemic at this time. PLEASE ALSO DOCUMENT RESPONSE IN PROGRESS NOTES AND/OR DISCHARGE SUMMARY Use of terms such as suspected, likely, or probable (associated with a specific diagnosis that is being evaluated, monitored, or treated as if it exists) are acceptable and can be restated in the discharge summary if not ruled out. MTDD
[2017-03-24] MEDS: ATORVASTATIN 40 MG TABLET PO SCH (20:13)
[2017-03-25 02:41] LABS: Basophils % 0.4 % (0.0-0.8); Eosinophils # 0.3 10*3/uL (0.0-0.87); Eosinophils % 3.5 % (0.00-10.9); Hematocrit 37.7 VOL% (35.7-47.0); Hemoglobin 12.5 GM/DL (12.0-16.0); Immature Granulocytes % 0.2 %; Immature Granulocytes Absolute 0.02 #; Lymphocytes # 3.1 10*3/uL (1.4-4.0); Mean Corpuscular HGB Conc 33.2 GM/DL (32-36); Mean Corpuscular Hemoglobin 27 PG (27-34); Mean Corpuscular Volume 82.1 FL (87-102); Monocytes # 0.7 10*3/uL (0.11-0.8); Monocytes % 8.1 % (1.7-12.7); Neutrophils # 4.1 10*3/uL (1.4-7.4); Neutrophils % 49.8 % (38.7-73.9); Platelet Count 262 T/CUMM (130-400); Red Blood Count 4.59 MC/CUMM (3.8-5.5); Red Cell Distribution Width 14.1 % (9.3-17.3); White Blood Count 8.3 T/CUMM (4-12)
[2017-03-25 03:17] LABS: Calcium 9.1 MG/DL (8.5-10.1); Magnesium 2.2 MG/DL (1.8-2.4); Osmolality,Calculated 281.4 MOS/KG (273-304); Potassium 3.7 MMOL/L (3.5-5.1)
[2017-03-25] MEDS: POTASSIUM CHLORIDE 20 MEQ TABLET PO PRN (06:45)
--- NOTE | 2017-03-25 08:42 | Cardiology Progress Note ---
Assessment and Plan - Time spent with patient Time spent with patient: Less than 30 minutes (1) Cardiomyopathy Status: Acute Assessment and plan: See plan of care listed below. Current Visit: Yes (2) Stroke Status: Acute Assessment and plan: See plan of care listed below. Current Visit: Yes (3) Congestive heart failure Status: Resolved Assessment and plan: See plan of care listed below. Current Visit: Yes Qualifiers: Congestive heart failure type: unspecified congestive heart failure type (4) Hyperlipidemia Status: Acute Assessment and plan: See plan of care listed below. Current Visit: Yes (5) Elevated troponin Status: Acute Assessment and plan: See plan of care listed below. Current Visit: Yes (6) SOB (shortness of breath) Status: Acute Assessment and plan: See plan of care listed below. Current Visit: Yes (7) LBBB (left bundle branch block) Status: Acute Assessment and plan: See plan of care listed below. Current Visit: Yes Cardiology - PN: Subj Interval history: Professional Nurse: None, new to Dr. Peralta Summary: Ms. Lord is a 66 year old female without a prior cardiac history, risk factors significant for family history of early coronary artery disease, tobacco use. She was admitted with congestive heart failure that appeared to be subacute decline over a number of months. She also positive cardiac biomarkers and possible tachyarrhythmia. She experienced acute onset of left- sided weakness and facial droop with dysarthria consistent with acute stroke. Head CT revealed a 7mm lacunar infarct in the left internal capsule. She was started on heparin drip per protocol. MARCH 24, 2017: Ms. Lord is doing well from a cardiac standpoint. She has now regained muscular function on her left side with the exception of a persistent left-sided facial droop and dysarthria. She is able to swallow medications without difficulty and is tolerating po. Speech therapy has been consulted to see her. Vital signs are currently stable and she denies chest pain or shortness of breath. From a cardiac standpoint, she is stable and could be transferred to telemetry. Impression and plan: 1. Acute stroke-she is on a heparin drip. Carotid Dopplers showed no significant ICA stenosis bilaterally. She is on aspirin. Unless she already qualifies for chronic anticoagulation from her recent stroke, it is recommended she have an ILR implanted prior to discharge to monitor for silent A. Fib. 2. Congestive heart failure-she has responded well to treatment. She has a newly diagnosed cardiomyopathy. 3. Elevated cardiac biomarkers-once her heart failure is treated we will need to proceed with cardiac catheterization for definitive diagnosis to rule out ischemia. At this point this will be delayed due to her acute stroke. She is on an misael inhibitor, beta emmanuel, aspirin, and high dose statin. If needed, would increase beta-emmanuel first as she had some asymptomatic NSVT on quality assurance monitor final. 4. Left bundle branch block-chronicity unknown. 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 5. Hyperlipidemia-She has been started on high dose statin therapy. Exam (Progress Note) - Constitutional Vitals: Period Temp Pulse Resp BP Sys/Escobar Pulse Ox Last 24 Hr 96.3 F-97.3 F 64-80 12-23 90-145/54-80 94-100 Exam: General appearance: normal weight, no acute distress - Head Head exam: Present: normal inspection, normocephalic, atraumatic. There is slight left-sided facial drooping. Absent: hematoma, laceration - Eye Eye exam: Present: EOMI. Absent: conjunctival injection, nystagmus, periorbital swelling, scleral icterus, laceration to eyelids Pupils: Absent: constricted, dilated, fixed, irregular, unequal - ENT ENT exam: Present: normal exam, normal external ear exam - Neck Neck exam: Present: normal inspection. Absent: lymphadenopathy, meningismus, tenderness, thyromegaly - Respiratory Respiratory exam: Present: clear to auscultation bilaterally. Absent: accessory muscle use, chest wall tenderness - Cardiovascular Cardiovascular exam: Present: regular rate and rhythm. Absent: carotid bruit, gallop, JVD, rubs - GI/Abdominal GI/Abdominal exam: Present: normal bowel sounds, soft. Absent: distended, firm , guarding, hernia, mass, tenderness, rebound. - Extremities Exam Extremities exam: Present: normal capillary refill. Absent: calf tenderness, edema - Back Exam Back exam: Present: normal inspection. Absent: muscle spasm, vertebral tenderness - Neurological Exam Neurological exam: Present: alert, oriented X3, there is left-sided facial drooping and dysarthria. She has matched strength in the bilateral extremities. - Psychiatric Psychiatric exam: Present: normal affect, normal mood - Skin Skin exam: Present: normal color, warm, dry, intact. Absent: cyanosis, diaphoretic, rash, urticaria Result/EKG - Labs CBC & BMP: 03/25/17 02:10 03/25/17 02:10 Lab Results: I have reviewed the past 24 hour labs Labs: Laboratory Results - last 24 hr 03/24/17 03/24/17 03/24/17 13:22 19:34 19:34 WBC RBC Hgb Hct MCV MCH MCHC RDW Plt Count MPV Neut % (Auto) Lymph % (Auto) [place] % (Auto) Eos % (Auto) Baso % (Auto) Neut # (Auto) Lymph # (Auto) [place] # (Auto) Eos # (Auto) Baso # (Auto) Immature Gran % Nucleated RBC % Immature Gran # Nucleated RBCs # Circ Anticoag PTT 48.0 H D 46.3 H Sodium Potassium 3.7 Chloride Carbon Dioxide Anion Gap BUN Creatinine GFR Calculation BUN/Creatinine Ratio Glucose Calculated Osmolality Calcium Magnesium 03/25/17 03/25/17 03/25/17 02:10 02:10 02:10 WBC 8.3 RBC 4.59 Hgb 12.5 Hct 37.7 MCV 82.1 L MCH 27 MCHC 33.2 RDW 14.1 Plt Count 262 MPV 9.0 L Neut % (Auto) 49.8 Lymph % (Auto) 38.0 Gaston % (Auto) 8.1 Eos % (Auto) 3.5 Baso % (Auto) 0.4 Neut # (Auto) 4.1 Lymph # (Auto) 3.1 Gaston # (Auto) 0.7 Eos # (Auto) 0.3 Baso # (Auto) 0.0 Immature Gran % 0.2 Nucleated RBC % 0.0 Immature Gran # 0.02 Nucleated RBCs # 0.00 Circ Anticoag PTT 52.0 H Sodium 140 Potassium 3.7 Chloride 101 Carbon Dioxide 32 Anion Gap 10.7 BUN 17 Creatinine 0.80 GFR Calculation 107 BUN/Creatinine Ratio 21.00 H Glucose 113 H Calculated Osmolality 281.4 Calcium 9.1 Magnesium 2.2 03/25/17 07:57 WBC RBC Hgb Hct MCV MCH MCHC RDW Plt Count MPV Neut % (Auto) Lymph % (Auto) Gaston % (Auto) Eos % (Auto) Baso % (Auto) Neut # (Auto) Lymph # (Auto) [place]aston # (Auto) Eos # (Auto) Baso # (Auto) Immature Gran % Nucleated RBC % Immature Gran # Nucleated RBCs # Circ Anticoag PTT 60.2 H Sodium Potassium Chloride Carbon Dioxide Anion Gap BUN Creatinine GFR Calculation BUN/Creatinine Ratio Glucose Calculated Osmolality Calcium Magnesium - EKG EKG results: interpreted by me, sinus rhythm
[2017-03-25] MEDS: FUROSEMIDE 40 MG/4 ML VIAL IV SCH (09:15)
[2017-03-25] MEDS: PARoxetine 20 MG TABLET PO SCH (09:16)
[2017-03-25] MEDS: MULTIVITAMIN (CENTRUM) TABLET PO SCH (09:16)
[2017-03-25] MEDS: ASPIRIN EC 325 MG TABLET PO SCH (09:16)
[2017-03-25] MEDS: CARVEDILOL 3.125 MG TABLET PO SCH ×2 (09:16→20:17)
[2017-03-25] MEDS: PANTOPRAZOLE 40 MG TABLET PO SCH (09:16)
[2017-03-25] MEDS: LISINOPRIL 2.5 MG TABLET PO SCH (09:17)
[2017-03-25] MEDS: HEPARIN DRIP 25,000 UNITS/500 ML PREMIX IV SCH ×3 (09:17→22:08)
--- NOTE | 2017-03-25 13:37 | Hospitalist Progress Note ---
Hospitalist: Subjective Interval history: Overnight, there were no issues. Patient is tired of drinking the broth and wants to advance her diet. Nursing states that swallow function is fine. Patient states that she feels well enough to go home. She denies any CP or SOB. Exam - Constitutional Vitals: Period Temp Pulse Resp BP Sys/Escobar Pulse Ox Last 24 Hr 96.3 F-97.5 F 64-80 12-23 90-145/54-80 90-100 General appearance: morbidly obese - Head Head exam: Present: normal inspection - Eye Eye exam: Present: EOMI Pupils: Present: NIHARIKA - Respiratory Respiratory exam: Present: clear to auscultation bilaterally - Cardiovascular Cardiovascular exam: Present: regular rate and rhythm - GI/Abdominal GI/Abdominal exam: Present: normal bowel sounds, soft - Neurological Exam Neurological exam: Present: alert (mild left facial droop; mild dysarthria), oriented X3 Results - Labs CBC & BMP: 03/25/17 02:10 03/25/17 02:10 - Impressions 1. Acute systolic CHF: improving; on lasix; being cared for by cardiology 2. Severe CM with EF of 30-35%; d/c IVFs 3. Elevated TNI: being followed by cardiology; noted plan for LHC (which may be done as outpatient) once stable from CVA 4. LBBB: noted plan for LHC; on asa/statin/beta emmanuel/misael-i 4. HTN: bp controlled but borderline; continue agents for now; continue to monitor bp 5. Acute right MCA CVA: on heparin but don't think she needs AC as there is no evidence of a-fib/cardiac emboli; this is my first time caring for the patient; so, will defer to primary provider; will also await results of MRI, which she will have tomorrow; continue asa and statin; cardiology noted plan for implantable loop recorder before discharge to monitor for slient a-fib; advance diet Plan: as noted above; advance diet; MRI on tomorrow; if stable, likely transfer to telemetry on tomorrow
[2017-03-25] MEDS: DEXTROSE 5% NACL 0.45% 1,000 ML IV SCH (17:42)
[2017-03-25] MEDS ORDERED: DOCUSATE SODIUM 100 MG CAPSULE PO PRN (18:53)
[2017-03-25] MEDS: ATORVASTATIN 40 MG TABLET PO SCH (20:17)
[2017-03-26 04:24] LABS: Calcium 9.4 MG/DL (8.5-10.1); Magnesium 2.4 MG/DL (1.8-2.4); Osmolality,Calculated 279.5 MOS/KG (273-304); Potassium 3.5 MMOL/L (3.5-5.1)
[2017-03-26] MEDS: POTASSIUM CHLORIDE 20 MEQ TABLET PO PRN (05:31)
[2017-03-26] MEDS: ASPIRIN EC 325 MG TABLET PO SCH (08:27)
[2017-03-26] MEDS: MULTIVITAMIN (CENTRUM) TABLET PO SCH (08:27)
[2017-03-26] MEDS: LISINOPRIL 2.5 MG TABLET PO SCH (08:27)
[2017-03-26] MEDS: CARVEDILOL 3.125 MG TABLET PO SCH ×2 (08:27→21:07)
[2017-03-26] MEDS: PARoxetine 20 MG TABLET PO SCH (08:27)
[2017-03-26] MEDS: FUROSEMIDE 40 MG TABLET PO SCH (08:27)
[2017-03-26] MEDS: PANTOPRAZOLE 40 MG TABLET PO SCH (08:28)
--- NOTE | 2017-03-26 08:29 | Cardiology Progress Note ---
Assessment and Plan (1) Congestive heart failure Status: Resolved Assessment and plan: 66-year-old female, presented with acute ischemic CVA, CHF. Newly diagnosed cardiomyopathy, left bundle branch block. No prior history of atrial fibrillation. Hypertension, HLP. BP well controlled. Borderline elevated cardiac biomarkers, not suggestive of acute injury. -Continue Coreg, lisinopril. BP still borderline. Will increase beta-emmanuel first, as tolerated by blood pressure, had asymptomatic nonsustained VT and short ATs on telemetry -Decreased Lasix to 40 mg qd po -Continue aspirin, statin. Will need ischemic evaluation, has underlying left bundle branch block, I would pursue cardiac catheterization, once she recovers from CVA. No ACS - mat be pursued as outpatient -Stop heparin drip. -Plan for ILR implant this afternoon. N.p.o. Discussed risks and benefits. -Left bundle branch block, CMP/CHF. If no reversible etiology for her CMP, and is not improving with medical management, she could be a candidate for [employer]MIN[employer]RATOR-D. Will need close cardiology FU -May be transferred to telemetry. If stable, may be able to go home today. Await PT/OT input. Current Visit: Yes Qualifiers: Congestive heart failure type: unspecified congestive heart failure type (2) Hyperlipidemia Status: Acute Current Visit: Yes (3) LBBB (left bundle branch block) Status: Acute Current Visit: Yes (4) Cardiomyopathy Status: Acute Current Visit: Yes (5) CVA (cerebral vascular accident) Status: Acute Current Visit: Yes Qualifiers: CVA mechanism: other Qualified Code(s): I63.8 - Other cerebral infarction Cardiology - PN: Subj Interval history: She is feeling better. Speech improved, occasionally, still has difficulty with articulation. No swallowing issues. Blood pressure is well controlled. One run of nonsustained atrial tachycardia on telemetry, not symptomatic. Exam (Progress Note) - Constitutional Vitals: Period Temp Pulse Resp BP Sys/Escobar Pulse Ox Last 24 Hr 96.5 F-98.1 F 64-98 12-26 93-118/48-75 90-99 General appearance: normal weight, morbidly obese - Head Head exam: Present: normal inspection, normocephalic - Eye Eye exam: Absent: conjunctival injection, scleral icterus Pupils: Absent: dilated - ENT ENT exam: Present: normal external ear exam - Neck Neck exam: Present: normal inspection - Respiratory Respiratory exam: Present: clear to auscultation bilaterally. Absent: accessory muscle use - Cardiovascular Cardiovascular exam: Present: regular rate and rhythm. Absent: JVD - GI/Abdominal GI/Abdominal exam: Present: normal bowel sounds. Absent: distended - Extremities Exam Extremities exam: Present: normal inspection, normal capillary refill. Absent: edema - Back Exam Back exam: Present: normal inspection - Neurological Exam Neurological exam: Present: alert, oriented X3 - Psychiatric Psychiatric exam: Present: normal affect, normal mood - Skin Skin exam: Present: normal color, warm. Absent: cyanosis Result/EKG - Labs CBC & BMP: 03/25/17 02:10 03/26/17 02:56 Lab Results: I have reviewed the past 24 hour labs Labs: Laboratory Results - last 24 hr 03/25/17 03/25/17 03/26/17 14:12 20:17 02:56 Circ Anticoag PTT 51.3 H 49.0 H Sodium 139 Potassium 3.5 Chloride 100 Carbon Dioxide 30 Anion Gap 12.5 BUN 18 Creatinine 0.90 GFR Calculation 93 BUN/Creatinine Ratio 20.00 Glucose 112 H Calculated Osmolality 279.5 Calcium 9.4 Magnesium 2.4 03/26/17 02:56 Circ Anticoag PTT 58.0 H Sodium Potassium Chloride Carbon Dioxide Anion Gap BUN Creatinine GFR Calculation BUN/Creatinine Ratio Glucose Calculated Osmolality Calcium Magnesium - EKG EKG results: interpreted by me
--- NOTE | 2017-03-26 11:06 | Magnetic Resonance Report ---
MR head/brain w and wo con Indication: CVA Comparison: None Technique: Multiplanar magnetic resonance imaging was performed of the brain before and after the administration of 20 cc Dotarem intravenous contrast. Findings: Moderate area of cortical predominant restricted diffusion within the right frontotemporal and insular region consistent with acute right MCA distribution infarction. Mild to moderate periventricular and subcortical T2 hyperintensities noted which are nonspecific but consistent with chronic microvascular ischemic change. Mild global volume loss present. No abnormal intracranial postcontrast enhancement. The midline structures are nondisplaced. There is no evidence of hydrocephalus. No convincing evidence of acute intracranial hemorrhage. The included orbits and their contents appear within normal limits. T2 major vascular flow voids are maintained. IMPRESSION: Moderate area of cortical predominant restricted diffusion within the right frontotemporal and insular region consistent with acute right MCA distribution infarction. Mild to moderate periventricular and subcortical T2 hyperintensities noted which are nonspecific but consistent with chronic microvascular ischemic change. Mild global volume loss present. PROCEDURE INTERPRETED AT [facility] DEPARTMENT OF RADIOLOGY Final Report Signed by: Dr Hermilo Thompson
--- NOTE | 2017-03-26 12:56 | Hospitalist Progress Note ---
Assessment and Plan (1) SOB (shortness of breath) Status: Acute Assessment and plan: Resolved at present, to need to monitor. Current Visit: Yes (2) LBBB (left bundle branch block) Status: Acute Assessment and plan: Cardiology managing, they plan to increase beta-emmanuel, will also decrease Lasix to 40 mg p.o. daily. Cardiology would like to pursue cardiac catheterization when she recovers from CVA, as an outpatient. Audiology plans for implantable loop recorder this afternoon. Patient to be transferred to room 273 telemetry. Current Visit: Yes (3) Cardiomyopathy Status: Acute Assessment and plan: See #2, and cardiology note. Current Visit: Yes (4) CVA (cerebral vascular accident) Status: Acute Assessment and plan: Patient without focal deficits weakness. Participating with OT and PT and will require neurology follow-up upon discharge. MRI of the brain with and without contrast performed today showing moderate area of cortical predominant which restricted diffusion within the right frontotemporal and insular region consistent with acute right MCA distribution infarction. Imaging also shows chronic microvascular ischemic change and mild global volume loss. Current Visit: Yes Qualifiers: CVA mechanism: other Qualified Code(s): I63.8 - Other cerebral infarction Hospitalist: Subjective Interval history: Patient lying comfortably in bed, in no acute distress and no acute events overnight. Today she is alert and oriented 3. She states she feels much better and has no new complaints today. She feels as if she is ready to go home whenever cardiology releases her. Dr. De La Garza, cardiology, is following and plans to insert a implantable loop recorder this afternoon. Patient currently being seen by PT and OT and progressing favorably. Patient moved from the unit today to room 273 telemetry. Exam - Constitutional Vitals: Period Temp Pulse Resp BP Sys/Escobar Pulse Ox Last 24 Hr 96.5 F-98.1 F 64-98 13-26 93-126/48-77 92-99 General appearance: over weight - Head Head exam: Present: normocephalic - Eye Eye exam: Present: EOMI Pupils: Present: NIHARIKA - Neck Neck exam: Present: normal inspection - Respiratory Respiratory exam: Present: clear to auscultation bilaterally - Cardiovascular Cardiovascular exam: Present: regular rate and rhythm - GI/Abdominal GI/Abdominal exam: Present: normal bowel sounds, soft - Extremities Exam Extremities exam: Present: normal inspection - Neurological Exam Neurological exam: Present: alert, oriented X3 - Psychiatric Psychiatric exam: Present: normal affect, normal mood - Skin Skin exam: Present: normal color, warm Results - Labs CBC & BMP: 03/25/17 02:10 03/26/17 02:56 Lab Results: I have reviewed the past 24 hour labs
--- NOTE | 2017-03-26 13:12 | History and Physical Update ---
Sedation H&P Update - History and Physical H&P was reviewed, the patient examined and there: are no changes in the patients condition since last H&P was completed. - Dictation Physical: refer to H&P completed by admitting physician - Physical Exam Mental Status: alert and oriented Heart: regular rate and rhythm Lung: clear to auscultation Abdomen: within normal limits Vitals: within normal limits - Sedation Plan for Sedation: moderate Patient Consent: Procedure disscussed with patient and patinet has consented., Risks and benefits were discussed with patient,including infection,, bleeding, injury to surrounding structures, seizure, temporary nerve, Patient understands and accepts potential risks/benefits and agrees to ASA Class: III Airway Assessment: Class II: Soft palate, uvula, fauces visible
[2017-03-26] MEDS ORDERED: LIDOCAINE 1%/EPI INJ 20 ML VIAL ONE (13:30)
[2017-03-26] MEDS ORDERED: fentaNYL 100 MCG/2 ML VIAL ONE (13:33)
[2017-03-26] MEDS ORDERED: MIDAZOLAM 10 MG/2 ML VIAL ONE (13:33)
--- NOTE | 2017-03-26 14:04 | Electrophysiology Report ---
Date of Procedure:: 03/26/17 Pre-op diagnosis: Cryptogenic CVA Post-op diagnosis: same Procedure: PROCEDURAL SUMMARY ILR implant. Successful procedure, no complications. DIAGNOSES Cryptogenic CVA A timeout was performed. The patient was continuously monitored by electrocardiography, pulse oximetry and NIBP. Antibiotic prophylaxis Iv. Ancef was used prior to the procedure. PROCEDURE The left parasternal area was meticulously prepared with ChloroPrep surgical scrub. Sterile draping was applied and Ioban was used to cover the operation site. After infiltration with 1% lidocaine+epinephrine, an incision was made in the left parasternal area with the blade of the ILR kit. The ILR was injected into the subcutaneous tissue using the implant tool. The sensed signal was 0.50 mV. Good hemostasis was noted. The wound was closed using 4-0 Monocryl and a layer of SteriStrips. A sterile dressing was then applied. Implanted device: Medtronic LinQ Reveal SN: [id number]. Anesthesia: minimal conscious sedation Surgeon / Physician: Nirav De La Garza Mounter Smoking Pipe: other (Lisseth) Estimated blood loss: none Specimens: none sent Condition: stable Disposition: floor
--- NOTE | 2017-03-26 14:19 | Event Note ---
Uneventful ILR implant. Blood pressure stable. From a cardiac perspective, she may be able to go home. Keep the implant site dry and the dressing in place for 1 week. Follow-up with Dr. De La Garza, in 1 week. We will continue to titrate her cardiomyopathy regimen as an outpatient. She will also need ischemic evaluation for cardiomyopathy, left bundle branch block. Currently, she is not symptomatic from heart failure.
[2017-03-26] MEDS ORDERED: MIDAZOLAM 2 MG/2 ML VIAL IV ONE (15:00)
[2017-03-26] MEDS ORDERED: fentaNYL 100 MCG/2 ML VIAL IV ONE (15:00)
[2017-03-26] MEDS: ATORVASTATIN 40 MG TABLET PO SCH (21:07)
[2017-03-27] MEDS: ASPIRIN EC 325 MG TABLET PO SCH (08:27)
[2017-03-27] MEDS: FUROSEMIDE 40 MG TABLET PO SCH (08:27)
[2017-03-27] MEDS: MULTIVITAMIN (CENTRUM) TABLET PO SCH (08:27)
[2017-03-27] MEDS: PANTOPRAZOLE 40 MG TABLET PO SCH (08:27)
[2017-03-27] MEDS: CARVEDILOL 3.125 MG TABLET PO SCH (08:27)
[2017-03-27] MEDS: LISINOPRIL 2.5 MG TABLET PO SCH (08:27)
[2017-03-27] MEDS: PARoxetine 20 MG TABLET PO SCH (08:28)
[2017-03-27] MEDS ORDERED: CLOPIDOGREL 75 MG TABLET PO SCH (09:00)
--- NOTE | 2017-03-27 10:15 | Cardiology Progress Note ---
Assessment and Plan (1) Congestive heart failure Status: Resolved Assessment and plan: 66-year-old female, presented with acute ischemic CVA, CHF. Newly diagnosed cardiomyopathy, left bundle branch block. No prior history of atrial fibrillation. Hypertension, HLP. BP well controlled. Borderline elevated cardiac biomarkers, not suggestive of acute injury. -Continue Coreg, lisinopril. Will increase beta-emmanuel first, as tolerated by blood pressure, had asymptomatic nonsustained VT and short ATs on telemetry -Decreased Lasix to 40 mg qd po. Congestion resolved. -Continue aspirin, Plavix, statin. Will need ischemic evaluation, has underlying left bundle branch block, CMP. I would pursue cardiac catheterization , once she recovers from CVA. No ACS - mat be pursued as outpatient -FU with dr. De La Garza in 1 week for ILR implant site check Current Visit: Yes Qualifiers: Congestive heart failure type: unspecified congestive heart failure type (2) Hyperlipidemia Status: Acute Current Visit: Yes (3) LBBB (left bundle branch block) Status: Acute Current Visit: Yes (4) Cardiomyopathy Status: Acute Current Visit: Yes (5) CVA (cerebral vascular accident) Status: Acute Current Visit: Yes Qualifiers: CVA mechanism: other Qualified Code(s): I63.8 - Other cerebral infarction Cardiology - PN: Subj Interval history: She is feeling fine. The blood pressure well controlled. No A. fib on telemetry so far. The ILR implant site shows no hematoma. Exam (Progress Note) - Constitutional Vitals: Period Temp Pulse Resp BP Sys/Escobar Pulse Ox Last 24 Hr 97.2 F-98.4 F 69-85 16-20 105-133/50-77 93-98 General appearance: normal weight, morbidly obese - Head Head exam: Present: normal inspection, normocephalic - Eye Eye exam: Absent: conjunctival injection, scleral icterus Pupils: Absent: dilated - ENT ENT exam: Present: normal external ear exam - Neck Neck exam: Present: normal inspection - Respiratory Respiratory exam: Present: clear to auscultation bilaterally. Absent: accessory muscle use, wheezes - Cardiovascular Cardiovascular exam: Present: regular rate and rhythm - GI/Abdominal GI/Abdominal exam: Present: normal bowel sounds. Absent: distended - Extremities Exam Extremities exam: Present: normal inspection, normal capillary refill. Absent: edema - Back Exam Back exam: Present: normal inspection - Neurological Exam Neurological exam: Present: alert, oriented X3 - Psychiatric Psychiatric exam: Present: normal affect, normal mood - Skin Skin exam: Present: normal color, warm. Absent: cyanosis Result/EKG - Labs CBC & BMP: 03/25/17 02:10 03/26/17 02:56 Lab Results: I have reviewed the past 24 hour labs - EKG EKG results: interpreted by me
[2017-03-27 11:48] VITALS: BP 128/62
--- NOTE | 2017-03-27 14:31 | Discharge Summary ---
Hospital Course - Hospital Course Hospital Course: His hospitalization included patient admitted for chest pressure and EKG changes of left bundle branch block. Serial cardiac enzymes were elevated. The patient was evaluated by cardiology. Further workup was planned for a cardiac catheterization due to these initial findings, however within the next 24 hours of admission, the patient had left facial droop dysarthria and left- sided weakness. She had a CT scan done that showed evidence of a small bandlike area of decreased density significant for right frontoparietal ischemic event. This was subsequently followed up by an MRI that showed the right frontal temporal and insular region consistent with a acute right MCA stroke. She was transferred to an ICU setting and started on heparin infusion. Her symptoms started to improve. She was able to move all her extremities her speech continued to improve. She remained hemodynamically stable. She was evaluated by speech pathology and was able to protect her airway. Subsequently, patient transferred to regular floor. Her further workup for her heart continued to include a implantable loop recorder for her evidence of cardiomyopathy. She continued to do acceptable. She remained medically stable. At this time, she will continue her cardiac workup on an outpatient basis. She is medically stable to be discharged home today. - Time spent with patient Time with patient DS: Greater than 30 minutes (35 minutes due to complexity of patient's medical course.) Diagnosis - Discharge Diagnosis (1) Elevated troponin Status: Acute (2) SOB (shortness of breath) Status: Resolved (3) Congestive heart failure Status: Resolved (4) LBBB (left bundle branch block) Status: Chronic (5) CVA (cerebral vascular accident) Status: Acute (6) Cardiomyopathy Status: Chronic (7) Stroke Status: Acute Discharge Plan - Discharge Data Disposition: Disch To Home/Self Care Condition at Discharge: Stable Discharge Diet: low salt diet Activity: resume usual activities as tolerated Hygiene: no restrictions - Discharge Medications New Atorvastatin [Lipitor] 40 mg PO BEDTIME #30 tablet Carvedilol [Coreg] 3.125 mg PO BID #30 tablet cephALEXin [Keflex] 500 mg PO Q6HR #40 capsule Clopidogrel [Plavix] 75 mg PO DAILY #30 tablet Lisinopril [Prinivil] 2.5 mg PO DAILY #30 tablet Continue Multivitamin (Centrum) [Centrum Tab] 1 tablet PO QAM hydroCHLOROthiazide [Hydrochlorothiazide] 25 mg PO QAM Dextroamphetamine/Amphetamine [Dextroamphetamine/Amphetamine ER] 30 mg PO QAM Amlodipine Besylate/Benazepril [Amlodipine-Benazepril 10-20 mg] 1 each PO QAM #30 Omeprazole 40 mg PO QAM PARoxetine HCl [Paroxetine HCl] 20 mg PO QAM - Follow Up or Referral - Forms/Instructions Additional Discharge Instructions: Follow-up appointment with Dr. Gillis 1 week. Follow-up appointment with Dr. Bello 1 week Exam - Constitutional Vitals: Period Temp Pulse Resp BP Sys/Escobar Pulse Ox Last 24 Hr 97.2 F-98.4 F 69-85 16-20 105-133/50-77 93-97 General appearance: over weight - Head Head exam: Present: normal inspection - Eye Eye exam: Present: EOMI Pupils: Present: NIHARIKA - Neck Neck exam: Present: normal inspection - Respiratory Respiratory exam: Present: clear to auscultation bilaterally - Cardiovascular Cardiovascular exam: Present: regular rate and rhythm - GI/Abdominal GI/Abdominal exam: Present: normal bowel sounds - Extremities Exam Extremities exam: Present: full ROM, other (Patient has an area of infiltration from an IV on her right forearm. She has had ice pack to the area. Will also be empirically treated with Keflex) - Back Exam Back exam: Present: normal inspection - Neurological Exam Neurological exam: Present: alert, oriented X3, CN II-XII intact - Psychiatric Psychiatric exam: Present: normal affect, normal mood - Skin Skin exam: Present: normal color DS: Provider Date of admission: 03/21/17 17:36 Primary care physician: Mick Freeman Attending physician on admission: Angie Peterson MD Consults: 03/21/17 18:33 Consult to Physician [CONS] Routine Comment: SOB; Trop 0.148 Consulting Provider: Richard Penaloza When should Consulting Provider be notified: In am 03/21/17 20:11 Consult to Physician [CONS] Routine Comment: CHF Consulting Provider: Elvia Peralta 03/23/17 10:09 Consult to Physician [CONS] Routine Comment: CVA dysarthria Consulting Provider: Chase Toledo When should Consulting Provider be notified: Now Consult Notification Comment: 03/24/17 @ [address] tre petit of consult but office was closed. I checked chief of production calender again noted dr toledo is on bypass until 03/31/17 so I notified charge nurse, hospitalist will be notified . 03/23/17 10:14 Consult to Occupational Therapy [CONS] Routine Reason for Occupational Therapy: Evaluate and Treat Start Therapy: Today Consult to Physical Therapy [CONS] Routine Reason for Physical Therapy: Evaluate and Treat Start Therapy: Today Discharging clinician: Rajendra Ibrahim Jr., MD
== END 2017-03-27 16:17 | disposition home or self-care (01) | DRG 260 ==
LOC: N.ED 15:34 → SUATTDRO 17:36 → N.EDINP 17:37 → SUATTDRO 17:37 → N.EDINP 19:24 → N.TELES 19:32 → N.CC 03-23 10:02 → N.TELES 03-26 11:04
PROVIDERS: ADMIT Family Medicine; ATTEND Internal Medicine Nephrology